=== PATIENT | female | born 1980 | race Caucasian/White ===

== ENCOUNTER 2017-07-30 22:18 | Inpatient (IN) | payer SELFPAY ==
[~2017-07-30] VITALS: Ht 152.4 cm; Wt 110.0 kg
[2017-07-30] MEDS ORDERED: IOHEXOL 350 MG/ML 10 ML VIAL (for RAD DIAG) IVCONTRAST ONE (22:19)
[2017-07-30 22:22] VITALS: BP 172/82; PULSE 101; RESP 18; TEMP 98.7; O2SAT 100
[2017-07-30 22:30] VITALS: TEMP 98.4
[2017-07-30] MEDS ORDERED: NITROGLYCERIN 0.4 MG SL 25 TABS/BTL SL ONE (23:15)
[2017-07-30] MEDS ORDERED: ALPRAZolam 0.5 MG TAB PO ONE (23:15)
[2017-07-30] MEDS ORDERED: cloNIDine HCL 0.1 MG TAB PO ONE (23:15)
--- NOTE | 2017-07-30 23:27 | RADRPT ---
EXAM DATE/TIME: 07/30/2017 23:12 [facility] COMPARISON: No previous studies available for comparison. INDICATIONS : Short of breath, chest pains. MEDICAL HISTORY : None. SURGICAL HISTORY : None. ENCOUNTER: Initial ACUITY: 1 day PAIN SCORE: 6/10 LOCATION: Bilateral chest FINDINGS: Portable AP view of the chest demonstrates a normal-sized cardiac silhouette. No effusion, consolidat ion, or pneumothorax is visualized. The bones and soft tissues demonstrate no acute abnormality. CONCLUSION: No acute cardiopulmonary abnormality is identified. Zana Enciso MD on July 30, 2017 at 23:25 Board Certified Radiologist. This report was verified electronically.
[2017-07-30 23:49] VITALS: BP 141/74; PULSE 89; RESP 18; O2SAT 100
[2017-07-30 23:58] LABS: AUTOMATED NEUTROPHIL # 8.9 TH/MM3 (1.8-7.7); BASOPHIL # 0.1 TH/MM3 (0-0.2); BASOPHIL % 0.7 % (0.0-2.0); EOSINOPHIL # 0.3 TH/MM3 (0-0.4); EOSINOPHIL % 2.7 % (0.0-4.0); HEMATOCRIT 27.3 % (35.0-46.0); HEMOGLOBIN 8.6 GM/DL (11.6-15.3); LYMPH % 22.1 % (9.0-44.0); LYMPHOCYTE # 2.8 TH/MM3 (1.0-4.8); MEAN CELL VOLUME 61.7 FL (80.0-100.0); MEAN CORPUSCULAR HEMOGLOBIN 19.3 PG (27.0-34.0); MEAN CORPUSCULAR HGB CONC 31.3 % (32.0-36.0); MEAN PLATELET VOLUME 6.7 FL (7.0-11.0); MONO % 4.8 % (0.0-8.0); MONOCYTE # 0.6 TH/MM3 (0-0.9); NEUT % 69.7 % (16.0-70.0); PLATELET COUNT 398 TH/MM3 (150-450); RED BLOOD COUNT 4.43 MIL/MM3 (4.00-5.30); RED CELL DISTRIBUTION WIDTH 18.3 % (11.6-17.2); WHITE BLOOD COUNT 12.7 TH/MM3 (4.0-11.0)
[2017-07-31] MEDS ORDERED: NITROGLYCERIN 2% OINT 1 GM PACKET TOPICAL ONE
[2017-07-31 00:06] LABS: CALCIUM 8.4 MG/DL (8.5-10.1); CREATININE 0.7 MG/DL (0.50-1.00)
[2017-07-31 00:10] LABS: TROPONIN I 0.06 NG/ML (0.02-0.05)
[2017-07-31] MEDS ORDERED: LIDOCAINE VISCOUS 2% SOLN 15 ML UDC PO ONE (02:15)
[2017-07-31] MEDS ORDERED: ALUMINUM/MAGNESIUM/SIMETH 30 ML CUP PO ONE (02:15)
[2017-07-31] MEDS ORDERED: SODIUM CHLORIDE 0.9% FLUSH 10 ML FLUSH IV FLUSH PRN ×2 (02:15→05:30)
--- NOTE | 2017-07-31 02:23 | RADRPT ---
EXAM DATE/TIME: 07/31/2017 01:43 [facility] COMPARISON: No previous studies available for comparison. INDICATIONS : Chest and back pain. IV CONTRAST: 70 cc Omnipaque 350 (iohexol) IV RADIATION DOSE: 20.52 CTDIvol (mGy) MEDICAL HISTORY : None SURGICAL HISTORY : Cholecystectomy. section. ENCOUNTER: Initial ACUITY: 1 day PAIN SCALE: 8/10 LOCATION: chest back TECHNIQUE: Volumetric scanning was performed using a multi-row detector CT scanner. The data was post processed with a variety of visualization algorithms including full volume maximum intensity projection, multi -planar sliding thin slab reformation, curved planar reformation, and surface rendering techniques. Using automated exposure control and adjustment of the mA and/or kV according to patient size, radiat ion dose was kept as low as reasonably achievable to obtain optimal diagnostic quality images. DICOM format image data is available electronically for review and comparison. FINDINGS: LUNGS: There is no consolidation or pneumothorax. No concerning pulmonary nodule is visualized. No pleural fluid is present. MEDIASTINUM: No abnormally enlarged lymph nodes by CT criteria. No axillary or hilar abnormalities are identified. Heart demonstrates no abnormality. ABDOMEN: There is been prior cholecystectomy. The liver, adrenal glands, kidneys, spleen, and pancreas demonst rate no significant abnormality. There is no free air or free fluid. PELVIS: There is a cystic lesion in the left pelvis measuring 5.8 cm. It likely arises from the left ovary. B ladder demonstrates no abnormality. THORACIC AORTA: The thoracic aortic root is normal with normal branching of the great vessels. There is no evidence of aneurysm or dissection. ABDOMINAL AORTA: The aorta is normal in caliber without aneurysm or dissection. The renal arteries are patent bilater ally. The proximal celiac and superior mesenteric arteries are patent and normal in diameter. PELVIC VESSELS: The internal iliac and external iliac vessels are patent without aneurysm or stenosis. CONCLUSION: 1. No acute finding is identified within the abdomen or pelvis. There is no aneurysm or dissection. 2. There is a 5.8 cm left adnexal cystic lesion that appears simple. This likely arises from the left ovary given the anatomic location. Given the size suggest [facility] to confirm resolution. Zana Enciso MD on July 31, 2017 at 2:18 Board Certified Radiologist. This report was verified electronically.
[2017-07-31 03:07] VITALS: BP 115/57; PULSE 87; RESP 18; O2SAT 100
[2017-07-31] MEDS ORDERED: HEPARIN SODIUM - IV 10,000 UNITS/10 ML VIAL IV PUSH ONE (04:15)
[2017-07-31] MEDS ORDERED: HEPARIN-D5W 25,000 U/250 ML 250 ML IV PRN ×2 (04:15→04:45)
[2017-07-31] MEDS ORDERED: ASPIRIN 81 MG CHEW TAB CHEW ONE (04:15)
--- NOTE | 2017-07-31 04:26 | PD ---
HPI . Chest pain Chief Complaint: Chest Pain Time Seen by Provider: 23:08 Travel History International Travel<30 days: No Contact w/Intl Traveler<30days: No Traveled to known affect area: No History of Present Illness HPI 37-year-old female complains of relatively sudden onset substernal chest pain radiating to right shoulder and right arm, then her left shoulder and left arm, followed by her upper back that this evening. Pain is described as being dull ache like squeezing type pain, patient clenching her fist in front of her chest to describe the pain. Further history taking is the patient has had pain in her back over the past 2 weeks which is been worse upon lying down. 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 Patient denies any shortness of breath or change in exercise tolerance lately. Denies any significant leg pain leg swelling, no sedentary period or confounding travel of late. PFSH Past Medical History Narrative Medical Past medical history reviewed Anemia: Yes Arthritis: Yes (L HAND) Anxiety: Yes Diminished Hearing: No ?: Not : 2 Ovarian Cysts: Yes Past Surgical History Section: Yes (2) Cholecystectomy: Yes Gynecologic Surgery: Yes () Tonsillectomy: Yes Social History Alcohol Use: Yes (OCCASIONALLY) Tobacco Use: Yes (1/2 PPD) Substance Use: No Allergies-Medications (Allergen,Severity, Reaction): Coded Allergies: diphenhydramine (Unverified Allergy, Unknown, 07/30/17) Reported Meds & Prescriptions Reported Meds & Active Scripts Active Mobic (Meloxicam) 15 Mg Tab 15 Mg PO DAILY PRN Narrative Medication Allergies and medications reviewed Review of Systems Except as stated in HPI: all other systems reviewed are Neg General / Constitutional: No: Fever Eyes: No: Visual changes HENT: No: Headaches Cardiovascular: Positive: Chest Pain or Discomfort Respiratory: No: Shortness of Breath Gastrointestinal: No: Abdominal Pain Genitourinary: No: Dysuria Musculoskeletal: No: Pain Skin: No Rash Neurologic: No: Weakness Psychiatric: No: Depression Endocrine: No: Polydipsia Hematologic/Lymphatic: No: Easy Bruising Physical Exam Narrative GENERAL: Awake alert oriented 3 no acute distress. Vital signs patient had notable hypertension from triage at 220/124, repeated, normalized without treatment. Patient is morbidly obese SKIN: Warm and dry. Color is normal no diaphoresis cyanosis or pallor HEAD: Atraumatic. Normocephalic. EYES: Pupils equal and round. No scleral icterus. No injection or drainage. ENT: No nasal bleeding or discharge. Mucous membranes pink and moist. NECK: Trachea midline. No JVD. Supple full range of motion CARDIOVASCULAR: Regular rate and rhythm. S1-S2 no murmurs rubs or gallops RESPIRATORY: No accessory muscle use. Clear to auscultation. Breath sounds equal bilaterally. GASTROINTESTINAL: Abdomen soft, non-tender, nondistended. Hepatic and splenic margins not palpable. MUSCULOSKELETAL: Extremities without clubbing, cyanosis, or edema. No obvious deformities. NEUROLOGICAL: Awake and alert. No obvious cranial nerve deficits. Motor grossly within normal limits. Five out of 5 muscle strength in the arms and legs. Normal speech. PSYCHIATRIC: Appropriate mood and affect; insight and judgment normal. Data Data Last Documented VS Vital Signs Date Time Temp Pulse Resp B/P (MAP) Pulse Ox O2 Delivery O2 Flow Rate FiO2 07/31/17 03:07 87 18 115/57 (76) 100 07/30/17 22:22 98.7 Orders Orders Electrocardiogram (07/30/17 22:41) Complete Blood Count With Diff (07/30/17 22:41) Basic Metabolic Panel (Bmp) (07/30/17 22:41) Ckmb (Isoenzyme) Profile (07/30/17 22:41) Troponin I (07/30/17 22:41) Chest, Single Ap (07/30/17 22:41) D-Dimer (07/30/17 23:14) Alprazolam (Xanax) (07/30/17 23:15) Nitroglycerin 2% Oint (Nitroglycerin 2% (07/31/17 00:00) Cta Thor Abd Aorta W Iv C W3d (07/31/17 ) Iohexol 350 Inj (Omnipaque 350 Inj) (07/30/17 22:19) Sodium Chloride 0.9% Flush (Ns Flush) (07/31/17 02:15) Al-Mag Hy-Si 40-40-4 Mg/Ml Liq (Mag-Al P (07/31/17 02:15) Lidocaine 2% Viscous (Xylocaine 2% Visco (07/31/17 02:15) Troponin I (07/31/17 03:07) Aspirin Chew (Aspirin Chew) (07/31/17 04:15) Heparin Inj (Heparin Inj) (07/31/17 04:15) Heparin-D5w 25,000 U/250 Ml (Heparin-D5w (07/31/17 04:15) Cbc No Diff, Includes Plts (08/03/17 06:00) Act Partial Throm Time (Ptt) (07/31/17 11:15) Occult Blood (Hemoccult) Stool (07/31/17 04:15) Clopidogrel (Plavix) (07/31/17 04:30) Labs Laboratory Tests Test 07/30/17 23:39 07/30/17 23:42 07/31/17 02:45 White Blood Count 12.7 TH/MM3 Red Blood Count 4.43 MIL/MM3 Hemoglobin 8.6 GM/DL Hematocrit 27.3 % Mean Corpuscular Volume 61.7 FL Mean Corpuscular Hemoglobin 19.3 PG Mean Corpuscular Hemoglobin Concent 31.3 % Red Cell Distribution Width 18.3 % Platelet Count 398 TH/MM3 Mean Platelet Volume 6.7 FL Neutrophils (%) (Auto) 69.7 % Lymphocytes (%) (Auto) 22.1 % Monocytes (%) (Auto) 4.8 % Eosinophils (%) (Auto) 2.7 % Basophils (%) (Auto) 0.7 % Neutrophils # (Auto) 8.9 TH/MM3 Lymphocytes # (Auto) 2.8 TH/MM3 Monocytes # (Auto) 0.6 TH/MM3 Eosinophils # (Auto) 0.3 TH/MM3 Basophils # (Auto) 0.1 TH/MM3 CBC Comment DIFF FINAL Differential Comment Blood Urea Nitrogen 9 MG/DL Creatinine 0.70 MG/DL Random Glucose 105 MG/DL Calcium Level 8.4 MG/DL Sodium Level 140 MEQ/L Potassium Level 3.9 MEQ/L Chloride Level 107 MEQ/L Carbon Dioxide Level 24.0 MEQ/L Anion Gap 9 MEQ/L Estimat Glomerular Filtration Rate 94 ML/MIN Total Creatine Kinase 58 U/L Troponin I 0.06 NG/ML 0.42 NG/ML D-Dimer Quantitative (PE/DVT) 0.37 MG/L FEU MDM Medical Decision Making Medical Screen Exam Complete: Yes Emergency Medical Condition: Yes Medical Record Reviewed: Yes Differential Diagnosis Myocardial infarction, aortic dissection, pulmonary embolus, esophagitis, pericarditis Narrative Course EKG normal sinus rhythm 86 bpm, nonischemic. Slight IVCD noted in inferior limb lead 3 and aVF Chest x-ray normal Laboratory examinations, troponin 0.06, 3 hour repeat 0.42. D-dimer negative laboratory examinations otherwise unremarkable CT aorta performed secondary to patient's pain rating her back and markedly elevated blood pressure at presentation. Negative for acute poor embolus or aortic dissection With conjunction of patient's symptomatology and evolution and cardiac enzymes, patient is treated as non-STEMI, started on heparin ACS protocol, aspirin and Plavix. Case discussed with Dr. Patel Hospital service, admitted Diagnosis Primary Impression: Non-STEMI (non-ST elevated myocardial infarction) Admitting Information Admitting Physician Requests: Admit Musa Kerr MD Jul 31, 2017 04:26
[2017-07-31] MEDS ORDERED: CLOPIDOGREL 75 MG TAB PO ONE (04:30)
[2017-07-31 04:54] VITALS: BP 121/60; PULSE 90; RESP 14; O2SAT 100
[2017-07-31] MEDS ORDERED: D5-1/2 NS + KCL 20 MEQ INJ 1,000 ML IV SCH (05:26)
[2017-07-31] MEDS ORDERED: MORPHINE SULFATE 4 MG/ML INJ IV PUSH PRN (05:30)
[2017-07-31] MEDS ORDERED: ACETAMINOPHEN 500 MG CPLT PO PRN (05:30)
[2017-07-31 05:31] LABS: PROTHROMBIN TIME - PATIENT 10.1 SEC (9.8-11.6)
--- NOTE | 2017-07-31 05:33 | HHI.HP ---
[facility] Michelle Olmos MD Admission Diagnosis Non-STEMI Diagnoses: Travel History International Travel<30 Days: No Contact w/Intl Traveler <30 Da: No Traveled to Known Affected Are: No History of Present Illness 37-year-old female with no significant past medical history presents to the emergency department for the evaluation of chest pain. She describes the chest pain is substernal and a tightness. It is associated with shortness of breath. Denies diaphoresis. She states the pain radiates down her right arm into her upper back. She endorses several episodes of nausea/vomiting. Denies fever/ chills. She denies lower extremity swelling. Review of Systems Except as stated in HPI: all other systems reviewed are Neg Past Family Social History Past Medical History None Past Surgical History 2 Cholecystectomy Tonsillectomy Reported Medications Reported Meds & Active Scripts Active Mobic (Meloxicam) 15 Mg Tab 15 Mg PO DAILY PRN Allergies: Coded Allergies: diphenhydramine (Unverified Allergy, Unknown, 07/30/17) Family History Negative for DM/CAD Social History Smokes approximately half a pack per day. Occasional alcohol. Denies illicit drugs. Physical Exam Vital Signs Vital Signs Date Time Temp Pulse Resp B/P (MAP) Pulse Ox O2 Delivery O2 Flow Rate FiO2 07/31/17 04:54 90 14 121/60 (80) 100 07/31/17 03:07 87 18 115/57 (76) 100 07/30/17 23:49 89 18 141/74 (96) 100 07/30/17 22:40 22 07/30/17 22:22 98.7 101 18 172/82 (112) 100 Physical Exam GENERAL: Obese, female sitting up in bed SKIN: No rashes, ecchymoses or lesions. Cool and dry. HEAD: Atraumatic. Normocephalic. No temporal or scalp tenderness. EYES: Pupils equal round and reactive. Extraocular motions intact. No scleral icterus. No injection or drainage. ENT: Nose without bleeding, purulent drainage or septal hematoma. Throat without erythema, tonsillar hypertrophy or exudate. Uvula midline. Airway patent. NECK: Trachea midline. No JVD or lymphadenopathy. Supple, nontender, no meningeal signs. CARDIOVASCULAR: Regular rate and rhythm without murmurs, gallops, or rubs. RESPIRATORY: Clear to auscultation. Breath sounds equal bilaterally. No wheezes , rales, or rhonchi. GASTROINTESTINAL: Abdomen soft, non-tender, nondistended. No hepato-splenomegaly , or palpable masses. No guarding. MUSCULOSKELETAL: Extremities without clubbing, cyanosis, or edema. No joint tenderness, effusion, or edema noted. No calf tenderness. NEUROLOGICAL: Awake and alert. Cranial nerves II through XII intact. Motor and sensory grossly within normal limits. Normal speech. Laboratory Laboratory Tests Test 07/30/17 23:39 07/30/17 23:42 07/31/17 02:45 White Blood Count 12.7 Red Blood Count 4.43 Hemoglobin 8.6 Hematocrit 27.3 Mean Corpuscular Volume 61.7 Mean Corpuscular Hemoglobin 19.3 Mean Corpuscular Hemoglobin Concent 31.3 Red Cell Distribution Width 18.3 Platelet Count 398 Mean Platelet Volume 6.7 Neutrophils (%) (Auto) 69.7 Lymphocytes (%) (Auto) 22.1 Monocytes (%) (Auto) 4.8 Eosinophils (%) (Auto) 2.7 Basophils (%) (Auto) 0.7 Neutrophils # (Auto) 8.9 Lymphocytes # (Auto) 2.8 Monocytes # (Auto) 0.6 Eosinophils # (Auto) 0.3 Basophils # (Auto) 0.1 CBC Comment DIFF FINAL Differential Comment Blood Urea Nitrogen 9 Creatinine 0.70 Random Glucose 105 Calcium Level 8.4 Sodium Level 140 Potassium Level 3.9 Chloride Level 107 Carbon Dioxide Level 24.0 Anion Gap 9 Estimat Glomerular Filtration Rate 94 Total Creatine Kinase 58 Troponin I 0.06 0.42 D-Dimer Quantitative (PE/DVT) 0.37 Result Diagram: 07/30/17233807/30/172338 Caprini VTE Risk Assessment Caprini VTE Risk Assessment: Mod/High Risk (score >= 2) Caprini Risk Assessment Model Point Value = 1 Point Value = 2 Point Value = 3 Point Value = 5 Age 41-60 Minor surgery BMI > 25 kg/m2 Swollen legs Varicose veins or History of unexplained or recurrent spontaneous Oral contraceptives or hormone replacement Sepsis (< 1 month) Serious lung disease, including pneumonia (< 1 month) Abnormal pulmonary function Acute myocardial infarction Congestive heart failure (< 1 month) History of inflammatory bowel disease Medical patient at bed rest Age 61-74 Arthroscopic surgery Major open surgery (> 45 min) Laparoscopic surgery (> 45 min) Malignancy Confined to bed (> 72 hours) Immobilizing plaster cast Central venous access Age >= 75 History of VTE Family history of VTE Factor V Leiden Prothrombin [id number] Lupus anticoagulant Anticardiolipin antibodies Elevated serum homocysteine Heparin-induced thrombocytopenia Other congenital or acquired thrombophilia Stroke (< 1 month) Elective arthroplasty Hip, pelvis, or leg fracture Acute spinal cord injury (< 1 month) Prophylaxis Regimen Total Risk Factor Score Risk Level Prophylaxis Regimen 0-1 Low Early ambulation 2 Moderate Order ONE of the following: *Sequential Compression Device (SCD) *Heparin 5000 units SQ BID 3-4 Higher Order ONE of the following medications: *Heparin 5000 units SQ TID *Enoxaparin/Lovenox 40 mg SQ daily (WT < 150 kg, CrCl > 30 mL/min) *Enoxaparin/Lovenox 30 mg SQ daily (WT < 150 kg, CrCl > 10-29 mL/min) *Enoxaparin/Lovenox 30 mg SQ BID (WT < 150 kg, CrCl > 30 mL/min) AND/OR *Sequential Compression Device (SCD) 5 or more Highest Order ONE of the following medications: *Heparin 5000 units SQ TID (Preferred with Epidurals) *Enoxaparin/Lovenox 40 mg SQ daily (WT < 150 kg, CrCl > 30 mL/min) *Enoxaparin/Lovenox 30 mg SQ daily (WT < 150 kg, CrCl > 10-29 mL/min) *Enoxaparin/Lovenox 30 mg SQ BID (WT < 150 kg, CrCl > 30 mL/min) AND *Sequential Compression Device (SCD) Assessment and Plan Assessment and Plan Assessment/plan: 1. NSTEMI EKG shows normal sinus rhythm, pulse 86, no ST segment elevations or depressions , personally reviewed Initial troponin 0.06, repeat 0.42 Heparin drip Aspirin, Plavix Morphine for pain Telemetry Serial troponin/EKGs Cardiology consulted, appreciate recommendations 2. Osteoarthritis Pain control as above Holding home Mobic FEN NPO D5 1/2 NS + 20 KCl at 75 cc/hr Electrolytes: monitor and replete prn Heparin ggt Physician Certification 2 Midnight Certification Type: Admission for Inpatient Services Order for Inpatient Services The services are ordered in accordance with Medicare regulations or non- Medicare payer requirements, as applicable. In the case of services not specified as inpatient-only, they are appropriately provided as inpatient services in accordance with the 2-midnight benchmark. Estimated LOS (days): 2 2 days is the estimated time the patient will need to remain in the hospital, assuming treatment plan goals are met and no additional complications. Post-Hospital Plan: Not yet determined Sandra Patel MD Jul 31, 2017 05:33
[2017-07-31 06:48] VITALS: BP 120/56; PULSE 86; RESP 18; O2SAT 100
[2017-07-31 07:34] VITALS: BP 116/59; PULSE 88; RESP 18; TEMP 98.5; O2SAT 97
[2017-07-31 08:00] VITALS: PULSE 88
--- NOTE | 2017-07-31 08:12 | PD.CONS ---
HPI Consult Requested By Primary Care Physician Michelle Olmos MD History of Present Illness 37-year-old female with a past medical history of hip OA who presented for chest pain. The patient states that she was walking out of the bathroom last night and developed sudden onset of chest pain. She describes the pain as a squeezing sensation. 8/10 in severity. Pain is been constant overnight, denies any change. Pain radiates to the upper back and right arm. Associated NEVAREZ and had an episode of vomiting after onset. She denies any relieving factors. She denies any history of HTN, HLD, DM, or heart disease. She denies any family history of heart disease or early AL. In the ED she had a normal d- dimer and CTA of the chest was negative for dissection or aneurysm. (Mirza Gaspar) Review of Systems Negative except as stated in the history of present illness (Mirza Gaspar) Past Family Social History Allergies: Coded Allergies: diphenhydramine (Unverified Allergy, Unknown, 07/30/17) Past Medical History Hip osteoarthritis Morbid obesity Past Surgical History 2 Cholecystectomy Tonsillectomy Reported Medications Reported Meds & Active Scripts Active Mobic (Meloxicam) 15 Mg Tab 15 Mg PO DAILY PRN Active Ordered Medications Current Medications Medications (Trade) Dose Ordered Sig/Shilpi Route Start Time Stop Time Status Last Admin Heparin Sodium/ Dextrose 250 ml @ 10 mls/hr TITRATE PRN IV 07/31/17 04:45 07/31/17 06:13 Potassium Chloride/Dextrose/ Sod Cl 1,000 ml @ 75 mls/hr [id number] IV 07/31/17 05:26 07/31/17 06:31 (NS Flush) 2 ml BID IV FLUSH 07/31/17 09:00 (NS Flush) 2 ml UNSCH PRN IV FLUSH 07/31/17 05:30 (Tylenol) 500 mg Q4H PRN PO 07/31/17 05:30 (Morphine Inj) 4 mg Q3H PRN IV PUSH 07/31/17 05:30 Family History Reports grandmother has diabetes. Denies any family history of heart disease or early AL. Social History Smokes half a pack daily (Mirza Gaspar) Physical Exam Vital Signs Vital Signs Date Time Temp Pulse Resp B/P (MAP) Pulse Ox O2 Delivery O2 Flow Rate FiO2 07/31/17 07:34 98.5 88 18 116/59 (78) 97 07/31/17 06:48 86 18 120/56 (77) 100 Room Air 07/31/17 06:48 07/31/17 04:54 90 14 121/60 (80) 100 07/31/17 03:07 87 18 115/57 (76) 100 07/30/17 23:49 89 18 141/74 (96) 100 07/30/17 22:40 22 07/30/17 22:22 98.7 101 18 172/82 (112) 100 Physical Exam GENERAL: Well-developed well-nourished. Morbidly obese. In no acute distress. NECK: No carotid bruits. No JVD. CARDIOVASCULAR: Regular rate and rhythm. No murmur appreciated. RESPIRATORY: No accessory muscle use. Clear to auscultation. Breath sounds equal bilaterally. MUSCULOSKELETAL: No clubbing or cyanosis. No edema. NEUROLOGICAL: Awake and alert. Normal speech. Laboratory Laboratory Tests Test 07/30/17 23:39 07/30/17 23:42 07/31/17 02:45 White Blood Count 12.7 Red Blood Count 4.43 Hemoglobin 8.6 Hematocrit 27.3 Mean Corpuscular Volume 61.7 Mean Corpuscular Hemoglobin 19.3 Mean Corpuscular Hemoglobin Concent 31.3 Red Cell Distribution Width 18.3 Platelet Count 398 Mean Platelet Volume 6.7 Neutrophils (%) (Auto) 69.7 Lymphocytes (%) (Auto) 22.1 Monocytes (%) (Auto) 4.8 Eosinophils (%) (Auto) 2.7 Basophils (%) (Auto) 0.7 Neutrophils # (Auto) 8.9 Lymphocytes # (Auto) 2.8 Monocytes # (Auto) 0.6 Eosinophils # (Auto) 0.3 Basophils # (Auto) 0.1 CBC Comment DIFF FINAL Differential Comment Blood Urea Nitrogen 9 Creatinine 0.70 Random Glucose 105 Calcium Level 8.4 Sodium Level 140 Potassium Level 3.9 Chloride Level 107 Carbon Dioxide Level 24.0 Anion Gap 9 Estimat Glomerular Filtration Rate 94 Total Creatine Kinase 58 Troponin I 0.06 0.42 Prothrombin Time 10.1 Prothromb Time International Ratio 1.0 Activated Partial Thromboplast Time 27.0 D-Dimer Quantitative (PE/DVT) 0.37 (Mirza Gaspar) Result Diagram: 07/30/17 2339 07/30/17 2339 Imaging Last Impressions Aorta CTA 07/31/17 0000 Signed Impressions: Service Date/Time: Monday, July 31, 2017 01:43 - CONCLUSION: 1. No acute finding is identified within the abdomen or pelvis. There is no aneurysm or dissection. 2. There is a 5.8 cm left adnexal cystic lesion that appears simple. This likely arises from the left ovary given the anatomic location. Given the size suggest follow-up ultrasound imaging in approximately 6-8 weeks to confirm resolution. Zana Enciso MD Chest X-Ray 07/30/17 2241 Signed Impressions: Service Date/Time: Sunday, July 30, 2017 23:12 - CONCLUSION: No acute cardiopulmonary abnormality is identified. Zana Enciso MD (Mirza Gaspar) Assessment and Plan Assessment and Plan 37-year-old female with a past medical history of hip OA who presented for chest pain. The patient states that she was walking out of the bathroom last night and developed sudden onset of chest pain. She describes the pain as a squeezing sensation. 8/10 in severity. Pain is been constant overnight, denies any change. Pain radiates to the upper back and right arm. Associated NEVAREZ and had an episode of vomiting after onset. She denies any relieving factors. She denies any history of HTN, HLD, DM, or heart disease. She denies any family history of heart disease or early AL. In the ED she had a normal d- dimer and CTA of the chest was negative for dissection or aneurysm. Atypical chest pain/elevated troponin: Troponin is elevated to 0.42 and patient placed on heparin drip. EKG w/ NSR. Possible NSTEMI. (Mirza Gaspar) Assessment and Plan NSTEMI - + chest pain. trop 0.06 -> 0.42 discussed options. proceed with [facility] for definitive diagnosis. rule out congenital anomaly vs spontaneous dissection vs printzmetals vs plaque rupture b-HCG stat 2d echo turn heparin gtt off on way to lab NPO (Martin Condon MD) Mirza Gaspar Jul 31, 2017 08:12 Martin Condon MD Jul 31, 2017 08:23
[2017-07-31 09:00] VITALS: PULSE 88
[2017-07-31] MEDS ORDERED: SODIUM CHLORIDE 0.9% FLUSH 10 ML FLUSH IV FLUSH SCH (09:00)
[2017-07-31 09:32] LABS: TROPONIN I 1.7 NG/ML (0.02-0.05)
[2017-07-31] MEDS ORDERED: HEPARIN SODIUM - IV 10,000 UNITS/10 ML VIAL ONE (09:57)
[2017-07-31] MEDS ORDERED: MIDAZOLAM HCL 2 MG/2 ML VIAL ONE ×2 (09:57→10:33)
[2017-07-31] MEDS ORDERED: HEPARIN-NS/PF FLUSH BAG 1,000 ML IV FLUSH ONE (09:57)
--- NOTE | 2017-07-31 10:53 | CATHPROC ---
[employer] HIS Report Study Information Study Number Admission Scheduled Start Study Start [id number] Jul 31 2017 4:29AM 07/31/2017 Jul 31 2017 9:50AM [place] [facility] Cardiac Catheterization Admit Source Facility Department Emergency department [facility] Physician and Clinical Staff Initial Martin Mendoza Landfill Attendant Temo RN, Jose L Recorder Delmy Duggan ,RT(R) Scrub Josey Grant,RT(R) Procedures Performed Procedure Location (Site) Vessel Name Coronary Angiograms LCA Left Coronary Coronary Angiograms RCA Right Coronary L Heart Cath Equipment Time Load Out Supervisor Description Size Mfg Part Number Used/Scraped TRANSDUCER, TRUWAVE [id number] 10:01 SMITH HUERTAS * Used W/STOCKCOCK *[id number] WIRE, CHOICE PT EX. SUPPORT [id number] 10:28 [employer] 180CM Used 182CM *[id number] 534-518T *[id number] 538-420 *[id number] 534-523T *[id number] 10:01 Alminder PACK, CCL CUSTOM * Used *[id number] 10:01 Alminder SUPPORT, ARTERIAL ADULT 10098 *[id number] Used [id number] 10:01 [employer] PEN, SKIN DUAL W/ RULER * Used *[id number] BAND, RADIAL COMPRESSION TR [id number] 10:39 Raiing 24CM Used SHORT 24 *[id number] SHEATH, FR6 RADIAL PRELUDE 10:01 Raiing FR 6 [id number] Used EASE 11CM [id number] 10:28 [employer] MEDICAL WIRE, EXCHANGE 260CM 3MMJ 260CM Used *[id number] 10:01 [employer] MEDICAL WIRE, EXCHANGE 260CM 3MMJ 260CM Used *[id number] 10:01 [employer] OMNIPAQUE, 350 MG, 150ML 150ML [id number] Used [id number] 10:01 [facility] BLANKET,WARM AIR CCL * Used *[id number] Equipment Model, Serial, Lot Number and Expiration Data Description Model Number Serial Number Lot Number Expiration Date WIRE, CHOICE PT EX. SUPPORT [id number] 12-19-2018 182CM History: Allergies Allergy Reaction diphenhydramine History: Risk Factors Family History of Hypertension Dyslipidemia Previous AL Previous Heart Failure Premature CAD No No No No No Prior Valve Prior PCI Prior CABG Surgery No No No Cerebrovascular Peripheral Artery Chronic Lung On Dialysis Diabetes Disease Disease Disease No No No No No History: Symptoms/Diagnosis Selection Items Chest pain SOB History: Stress Tests Stress or Imaging Studies Performed No History: Other Current Smoker Method Packs a Day Years Used Pack Years Yes Cigarettes 1 21 21 Labs Hgb (g/dl) Hct (%) RBC (MIL/MM3) WBC (l/cumm) Platelets (thousands) 11.60-17.00 35.00-51.00 4.00-5.90 4.00-11.00 150.00-450.00 8.6 27.3 4.4 12.7 398 Glucose (mg/dl) BUN (mg/dl) Creatinine (mg/dl) BUN:Creatinine (1:x) 74.00-106.00 7.00-18.00 0.50-1.30 10.00-20.00 105 9 0.7 12.9 Na (meq/l) K (meq/l) Cl (meq/l) CO2 (mmol/L) Ca (mg/dl) 136.00-145.00 3.50-5.10 98.00-107.00 21.00-32.00 8.50-10.10 140 3.9 107 24 8.4 PT (sec) PTT (sec) INR (PTT:PT) 9.80-11.60 24.30-30.10 0.90-1.10 10.1 27 1 Troponin I (ng/ml) CPK (u/l) 0.02-0.05 26.00-308.00 1.7 124 Medication Medication Total Dose (Bolus/Oral) Medication Total Dosage/Unit 1% XYLOCAINE 20 mL FENTANYL 150 mcg HEPARIN 5000 units RADIAL COCKTAIL 4 mL (Bolus) VERSED 3 mg Medications (Bolus/Oral) Medication Time Given Dosage/Unit Administered By Reason FENTANYL 07/31/2017 10:20:00 AM 50 mcg Jose L Plascencia RN 50 mcg FENTANYL given in lab by Jose L Plascencia RN in Right Forearm via Peripheral IV. Ordered by Martin Condon. VERSED 07/31/2017 10:21:19 AM 1 mg Jose L Plascencia RN 1 mg VERSED given in lab by Jose L Plascencia RN in Right Forearm via Peripheral IV. Ordered by Tavares Condon 1% XYLOCAINE 07/31/2017 10:24:01 AM 20 mL Martin Condon 20 mL 1% XYLOCAINE given in lab by Martin Condon in Right Radial via Subcutaneous. Ordered by Martin Condon. HEPARIN 07/31/2017 10:25:30 AM 5000 units Jose L Plascencia RN 5000 units HEPARIN given in lab by Jose L Plascencia RN in Right Forearm via Peripheral IV. Ordered by Martin Urena. RADIAL COCKTAIL 07/31/2017 10:26:24 AM 2 mL (Bolus) Martin Condon 2 mL (Bolus) RADIAL COCKTAIL given in lab by Martin Condon in Right Radial via Radial. Using [Soluti on Name]. Ordered by Martin Condon. 200 MCG NTG FENTANYL 07/31/2017 10:29:41 AM 25 mcg Jose L Plascencia RN 25 mcg FENTANYL given in lab by Jose L Plascencia RN in Right Forearm via Peripheral IV. Ordered by Martin Condon. VERSED 07/31/2017 10:30:45 AM 1 mg Jose L Plascencia RN 1 mg VERSED given in lab by Jose L Plascencia RN in Right Forearm via Peripheral IV. Ordered by Tavares Condon phen. RADIAL COCKTAIL 07/31/2017 10:32:21 AM 2 mL (Bolus) Martin Condon 2 mL (Bolus) RADIAL COCKTAIL given in lab by Martin Condon in Right Radial via Radial. Using [Soluti on Name]. Ordered by Martin Condon. 200 MCG NTG FENTANYL 07/31/2017 10:34:00 AM 25 mcg Temo SANDY, Jose L 25 mcg FENTANYL given in lab by Temo SANDY, Jose L in Right Forearm via Peripheral IV. Ordered by Martin Condon. VERSED 07/31/2017 10:35:00 AM 1 mg Temo SANDY, Jose L 1 mg VERSED given in lab by Jose L Plascencia RN in Right Forearm via Peripheral IV. Ordered by Tavares Condon. FENTANYL 07/31/2017 10:45:13 AM 50 mcg Jose L Plascencia RN 50 mcg FENTANYL given in lab by Jose L Plascencia RN in Right Forearm via Peripheral IV. Ordered by Martin Condon. Medication (Drip) Medication Time Given Dosage/Unit Concentration/Unit Diluent (ml) Solution IV Solutions 07/31/2017 9:50:44 AM 0 mL (IV) 500 NaCl .9 IV Solutions given in lab by Jose L Plascencia RN in Right Forearm via Peripheral IV. Pump/Drip Flow = 20 ml/hr using NaCl .9. Ordered by Martin Condon. Initial Case Assessment Cardiovascular HR Rhythm NIBP Chest Pain 93 sr 135/84 0 Edema Present Skin color Skin None Normal Warm Dry Circulatory - Right Pulses Dorsalis Pedis Femoral Radial 1 2 2 Scale (0,1,2,3,4,d) Scale (0,1,2,3,4,d) Neurological State Oriented to time-place- Alert Moves all extremities person Respiration - General Respiration Rate SpO2 (%) (B/min) 20 99 Final Case Assessment Cardiovascular HR Rhythm NIBP Chest Pain 94 sr 144/82 0 Edema Present Skin color Skin None Normal Warm Dry Circulatory - Right Pulses Dorsalis Pedis Femoral Radial 1 2 2 Scale (0,1,2,3,4,d) Scale (0,1,2,3,4,d) Neurological State Oriented to time-place- Alert Moves all extremities person Respiration - General Respiration Rate SpO2 (%) (B/min) 20 99 Chronological Log Time Study Chronological Log 9:50:29 Patient arrived via Bed. 9:50:30 Patient Name, D.O.B, / Armband Verified By R.N. 9:50:31 Consent signed by the physician and the patient and verified by the [facility] staff. 9:50:32 Pre-op and post- op instructions given; patient acknowledges understanding of instructions. 9:50:32 Verbal Stimulation=2 Physical Stimulation=2 Airway=2 Respiration=2 TOTAL=8. (0=absent, 1=marquis ited, 2=present) 9:50:34 Presedation assessment performed by [facility] RN. 9:50:35 Allens test performed on the left radial and ulnar artery. 9:50:39 Patient has been NPO for More than 6Hrs. 9:50:40 Skin Breakdown- none per patient 9:50:41 Patient Warmer Placed on the Table. 9:50:41 Gabriela Prominences Protected 9:50:43 A # 20 IV was noted in the Forearm (right). Grade = patent IV Solutions given in lab by Jose L Plascencia RN in Right Forearm via Peripheral IV. Pump/Drip Flow = 20 ml/hr using NaCl 9:50:44 .9. Ordered by Martin Condon. 9:50:45 History and physical on the chart or being dictated. Assessment: Initial Case, HR=93 BPM, Rhythm=sr, LWZY=665/84 mmhg, Chest Pain=0, Edema=None, Col or=Normal, Skin = Warm, Dry 9:50:46 Right Pulses: Nick Ped=1, Femoral=2, Radial=2 Neurological: State=Alert, Ox3, JONES Respiration: Resp=20 B/min, SpO2=99 % 9:54:36 A # 20 IV was noted in the Antecubital (left). Grade = patent Vitals capture started with the following parameters, Patient=Adult, Interval=5 min, Initial Pr otvwud=334 mmHg, 9:55:59 Deflation Rate=5 mmHg, Cuff placed on Left Arm 9:57:09 WGYE=670/81 mmhg, LpH0=591.0 % 10:01:37 HR=90 bpm, NYIC=962/84 mmhg, SpO2=99.0 %, Resp=25 B/min 10:03:14 Right groin and right radial prepped with 2% chlorhexidine, and draped after a 3 min. waiti ng time. 10:06:20 Reference ECG taken 10:06:36 HR=89 bpm, QSYF=987/73 mmhg, SrB8=715.0 %, Resp=15 B/min, Pain=0, Morena=6, Owens=2 10:09:02 paged 10:11:35 HR=88 bpm, NDYF=906/74 mmhg, VcI7=712.0 %, Resp=13 B/min, Pain=0, Morena=6, Owens=2 10:11:37 MD responded 10:12:40 Pressure channel 1 zeroed. 10:16:34 HR=83 bpm, ZMIY=930/76 mmhg, McP5=235.0 %, Resp=16 B/min, Pain=0, Morena=6, Owens=2 10:20:00 50 mcg FENTANYL given in lab by Jose L Plascencia RN in Right Forearm via Peripheral IV. Ordered by Martin Condon. 10:20:02 MD arrived. 10:21:19 1 mg VERSED given in lab by Jose L Plascencia RN in Right Forearm via Peripheral IV. Ordered by Martin Condon. 10:21:35 HR=86 bpm, OFBL=326/78 mmhg, JlN6=175.0 %, Resp=14 B/min, Pain=0, Morena=6, Owens=2 Time Out. Correct patient, correct procedure, correct physician, power injector not loaded with contrast with surgical 10:22:00 team present. Time Out Concurred by MD and individual staff in procedure. 10:23:20 Case Start 10:24:01 20 mL 1% XYLOCAINE given in lab by Martin Condon in Right Radial via Subcutaneous. Ordered by Martin Condon. 10:24:40 Access site was Right Radial Artery. 10:25:30 5000 units HEPARIN given in lab by Jose L Plascencia RN in Right Forearm via Peripheral IV. Orde red by Martin Condon. A SHEATH, FR6 RADIAL PRELUDE EASE 11CM FR 6 was advanced into the Radial (right) using the Perc utaneous 10::49 technique. 2 mL (Bolus) RADIAL COCKTAIL given in lab by Martin Condon in Right Radial via Radial. Using [ Solution Name]. 10::24 Ordered by Martin Condon. 200 MCG NTG 10::34 HR=90 bpm, UOQP=451/78 mmhg, SpO2=96.0 %, Resp=18 B/min, Pain=0, Morena=6, Owens=2 A JR 5.0 INFINITI CATHETER FR 5 was advanced over a wire. OMNIPAQUE, 350 MG, 150ML 150ML was us ed for 10:26:48 injections. Recorded Pressure: LV, HR=86, Condition=Condition 1 10:29:39 (Left Ventricle) LV 113/6/11 10:29:41 25 mcg FENTANYL given in lab by Jose L Plascencia RN in Right Forearm via Peripheral IV. Ordered by Martin Condon. Recorded Pressure: LV, Ao, HR=86, Condition=Condition 1 10:29:45 (Left Ventricle) LV 116/6/15, (Aorta) Ao 107/67/85 10:30:45 1 mg VERSED given in lab by Jose L Plascencia RN in Right Forearm via Peripheral IV. Ordered by Martin Condon. 10:30:53 The RCA was injected and visualized at various angles. OMNIPAQUE, 350 MG, 150ML 150ML used . 10:31:16 Catheter was removed A JL 3.5 INFINITI CATHETER FR 5 was advanced over a wire. OMNIPAQUE, 350 MG, 150ML 150ML was us ed for ::26 injections. 10:31:31 HR=88 bpm, ZRQB=149/86 mmhg, SpO2=98.0 %, Resp=14 B/min, Pain=0, Morena=6, Owens=2 2 mL (Bolus) RADIAL COCKTAIL given in lab by Martin Condon in Right Radial via Radial. Using [ Solution Name]. 10:32:21 Ordered by Martin Condon. 200 MCG NTG 10:33:28 Catheter was removed 10:34:00 25 mcg FENTANYL given in lab by Jose L Plascencia RN in Right Forearm via Peripheral IV. Ordered by Martin Condon. A JL 4.0 INFINITI CATHETER FR 4 was advanced over a wire. OMNIPAQUE, 350 MG, 150ML 150ML was us ed for 10:34:14 injections. 10:35:00 1 mg VERSED given in lab by Jose L Plascencia RN in Right Forearm via Peripheral IV. Ordered by Martin Condon. 10:36:34 HR=88 bpm, WGZT=608/82 mmhg, SpO2=96.0 %, Resp=18 B/min, Pain=0, Morena=6, Owens=2 Recorded Pressure: Ao, HR=93, Condition=Condition 1 10:37:42 (Aorta) Ao 112/74/90 10:37:46 The LCA was injected and visualized at various angles. OMNIPAQUE, 350 MG, 150ML 150ML used . 10:38:59 Catheter was removed 10:39:06 Case End Assessment: Final Case, HR=94 BPM, Rhythm=sr, IPOT=158/82 mmhg, Chest Pain=0, Edema=None, Color =Normal, Skin = Warm, Dry 10:39:28 Right Pulses: Nick Ped=1, Femoral=2, Radial=2 Neurological: State=Alert, Ox3, JONES Respiration: Resp=20 B/min, SpO2=99 % 10:39:53 Catheter(s) removed without difficulty Radial Compression Device Used. 11 mLs of air placed in BAND, RADIAL COMPRESSION TR SHORT 24 24 CM. Affected 10:40:05 hand 97 % O2 saturation. 10:40:20 Sterile dressing applied to site 10:40:21 No case complications noted. 10:40:22 Cine recording checked. 10:40:23 Bedside Report will be given. 10:40:35 Contrast Scanned 10:40:40 A Left Heart Cath was performed. 10:41:38 HR=93 bpm, GMLI=294/84 mmhg, SpO2=97.0 %, Resp=21 B/min, Pain=0, Morena=6, Owens=2 10:45:13 50 mcg FENTANYL given in lab by Jose L Plascencia RN in Right Forearm via Peripheral IV. Ordered by Martin Condon. 10:46:33 HR=91 bpm, ATMH=361/90 mmhg, SpO2=98.0 %, Resp=20 B/min, Pain=0, Morena=6, Owens=2 10:49:46 Vitals capture stopped. 10:52:11 Patient moved to [facility] End Study - Contrast Media Used In Study Contrast Total Opened (mL) Total Used (mL) Total Wasted (mL) Omnipaque 25 25 0 End Study - Maximum Contrast Load Max Contrast Load (mL) 785.7 End Study - Radiation Exposure Fluoro Time (minutes) 3.8 End Study - Patient Disposition Complications Transferred To Interventional Outcome No Telemetry Bed No attempt made
[2017-07-31] MEDS ORDERED: ASPIRIN EC 81 MG TABEC PO SCH (11:00)
[2017-07-31] MEDS ORDERED: amLODIPine BESYLATE 5 MG TAB PO SCH (11:00)
--- NOTE | 2017-07-31 11:15 | MA ---
cc: AJITH TIRADO DATE 07/31/2017 INDICATION [id number] [place]. PROCEDURE PERFORMED 1. Fluoroscopy with interpretation 2. Coronary angiography 3. Left heart catheterization METHOD The risks, benefits and alternatives discussed with the patient, the patient understood and consented to the procedure. PROCEDURE The patient was brought into the catheterization lab, placed on the catheterization table. The right wrist was prepped and draped in a sterile fashion. The right wrist was anesthetized with 2% lidocaine. The right radial artery is cannulated and a 6-Syriac 7 cm sheath was placed without difficulty. LEFT HEART CATHETERIZATION Intraventricular hemodynamics measured at 116/6 mmHg. The left end-diastolic pressure was 15 mmHg. CORONARY ANGIOGRAPHY The left main coronary is angiographically normal. The left anterior descending coronary artery is tortuous, but angiographically normal. The diagonal branch is angiographically normal. The left circumflex gives rise to a larger obtuse marginal branch and is angiographically normal. The right coronary artery is a dominant vessel giving rise to the posterior descending branch and is angiographically normal. CONCLUSIONS 1. Angiographically normal coronary arteries. 2. Normal left-sided filling pressures. PLAN The patient will be monitored closely for any post procedural complications. Troponin elevation is likely secondary to coronary vasospasm with Prinzmetal angina as her symptoms were suggested. There is no evidence for spontaneous coronary dissection, anomalous coronary artery, or fixed obstructive coronary disease. We will start on baby aspirin. We will hold off on beta marco given that we are going to initiate a non-dihydropyridine calcium channel marco for coronary vasospasm. Since there is no traditional atherosclerosis, statin therapy is not indicated. We will follow up with a 2-D echocardiogram. I will watch her today just to make sure she does not have any arrhythmias with a small troponin elevation and anticipate discharge tomorrow. MD LAURIE Reyes/LOPEZ /10:50 AM /11:06 AM
--- NOTE | 2017-07-31 11:23 | HHI.DCPOC ---
Discharge Care Plan Goals to Promote Your Health * To prevent worsening of your condition and complications * To maintain your health at the optimal level Directions to Meet Your Goals Take your medications as prescribed Follow your dietary instruction Follow activity as directed Keep your appointments as scheduled Take your immunizations and boosters as scheduled If your symptoms worsen call your PCP, if no PCP go to Urgent Care Center or Emergency Room Smoking is Dangerous to Your Health. Avoid second hand smoke Call the 24-hour hour crisis hotline for domestic abuse at Melissa Hester MD Jul 31, 2017 11:23
[2017-07-31] MEDS ORDERED: IOHEXOL 350 MG/ML 50 ML BTL (for Cath Lab) OTHER ONE (13:02)
--- NOTE | 2017-07-31 15:48 | EKG ---
Date Performed: 07/31/2017 Time Performed: 09:37:27 PTAGE: 37 years EKG: Sinus rhythm NORMAL ECG Since the prior tracing, there has been no significant change PREVIOUS TRACING : 07/31/2017 02.50 DOCTOR: Daily Resendiz Interpretating Date/Time 07/31/2017 15:48:30
--- NOTE | 2017-07-31 15:48 | EKG ---
Date Performed: 07/31/2017 Time Performed: 02:50:20 PTAGE: 37 years EKG: Sinus rhythm INFERIOR MYOCARDIAL INFARCTION ABNORMAL ECG Since the prior tracing, there has been no significant c zeinab PREVIOUS TRACING : 07/30/2017 23.09 DOCTOR: Daily Resendiz Interpretating Date/Time 07/31/2017 15:48:21
--- NOTE | 2017-07-31 16:11 | EKG ---
Date Performed: 07/30/2017 Time Performed: 23:09:28 PTAGE: 37 years EKG: Sinus rhythm NORMAL ECG Since the prior tracing, there has been no significant change PREVIOUS TRACING : 10/22/2015 09.26 DOCTOR: Daily Resendiz Interpretating Date/Time 07/31/2017 16:11:05
--- NOTE | 2017-07-31 17:31 | ECHRPT ---
Indication: CONCLUSIONS The left ventricular systolic function is hyperdynamic with an estimated ejection fraction in the ra nge of 65- 70%. Normal left ventricular size. Wall thickness is normal. BP: 116 / 59 HR: 88 Rhythm: Sinus MEASUREMENTS (Male / Female) Normal Values Technical Quality:Fair 2D ECHO LV Diastolic Diameter PLAX 4.7 cm 4.2 - 5.9 / 3.9 - 5.3 cm LV Systolic Diameter PLAX 3.2 cm IVS Diastolic Thickness 1.0 cm 0.6 - 1.0 / 0.6 - 0.9 cm LVPW Diastolic Thickness 1.0 cm 0.6 - 1.0 / 0.6 - 0.9 cm LV Relative Wall Thickness 0.4 LVOT Diameter 1.9 cm LA Systolic Diameter LX 3.9 cm 3.0 - 4.0 / 2.7 - 3.8 cm LV Ejection Fraction MOD 4C 65.3 % LV Cardiac Index MOD 4C 1936.4 cm/minm LV Ejection Fraction 4C AL 66.1 % LV Cardiac Index 4C AL 2009.6 cm/minm M-MODE Aortic Root Diameter MM 2.4 cm AV Cusp Separation MM 1.8 cm DOPPLER AV Peak Velocity 166.0 cm/s AV Peak Gradient 11.0 mmHg LVOT Peak Velocity 120.0 cm/s LVOT Peak Gradient 5.8 mmHg AV Area Cont Eq pk 2.0 cm MV Area PHT 3.9 cm Mitral E Point Velocity 114.0 cm/s Mitral A Point Velocity 80.9 cm/s Mitral E to A Ratio 1.4 PV Peak Velocity 122.0 cm/s PV Peak Gradient 6.0 mmHg FINDINGS LEFT VENTRICLE The left ventricular systolic function is hyperdynamic with an estimated ejection fraction in the ra nge of 65- 70%. Normal left ventricular size. Wall thickness is normal. RIGHT VENTRICLE Normal right ventricular size and systolic function. LEFT ATRIUM The left atrial size is normal. RIGHT ATRIUM The right atrial size is normal. ATRIAL SEPTUM Normal atrial septal thickness without atrial level shunting by limited color doppler interrogation. AORTA The aortic root and proximal ascending aorta are normal in size on limited imaging. MITRAL VALVE Structurally normal mitral valve. No mitral valve stenosis or regurgitation. AORTIC VALVE Trileaflet aortic valve. No aortic valve stenosis or regurgitation. TRICUSPID VALVE Structurally normal tricuspid valve. No tricuspid valve stenosis or regurgitation. PULMONARY VALVE The pulmonary valve is not well visualized. VESSELS The inferior vena cava is normal in size. PERICARDIUM No pericardial effusion. Martin Condon MD, FACC (Electronically Signed) Final Date:31 July 2017 17:29
--- NOTE | 2017-08-05 13:26 | PQ ---
Physician Query Response Document PATIENT: NICA GUZMAN : 1980 ADMIT DATE: 07/31/2017 4:29 AM DISCH DATE: RESPONDING PROVIDER #: [email or web address] QUERY TEXT: Clarification of Clinical Diagnostic Findings Please clarify documentation or clinical relevance for the clinical / diagnostic findings or whether those are insignificant or unable to be further specified. PLEASE INDICATE IF THE DOCUMENTED DX OF NSTEMI WAS: -- Ruled in -- Ruled out -- Undetermined -- Other The patient's Clinical Indicators include: 07/31/17 Admission Diagnosis Non-STEMI PER INITIAL H EKG shows normal sinus rhythm, pulse 86, no ST segment elevations or depressions, personally reviewed Initial troponin 0.06, repeat 0.42 Heparin drip PER 07/31/17 CARDIAC CATH REPORT - CONCLUSIONS 1. Angiographically normal coronary arteries. 2. Normal left-sided filling pressures. CADDYMASTER STATES - Troponin elevation is likely secondary to coronary vasospasm with Prinzmetal angina as her symptoms were suggested. There is no evidence for spontaneous coronary dissection, anomalous coronary artery, or fixed obstructive coronary disease. Query created by: Jania Noel on 08/02/2017 1:04 PM RESPONSE TEXT: Patient with Prinzmetal angina, s/p cardiac cath shows angiographically normal coronary arteries, als o normal pressure filling of left ventricle Electronically signed by: Melissa Hester MD 08/05/2017 1:22 PM
== END 2017-07-31 18:00 | disposition home or self-care (01) | DRG 287 ==
LOC: NEPC 22:18 → NEDA 07-31 04:29 → MERGE 07-31 04:29 → NEPFCDU 07-31 06:39 → HCIS 07-31 09:55
PROVIDERS: ADMIT Hospitalist; ATTEND Hospitalist
PROC: 4A023N7 Measurement of Cardiac Sampling and Pressure, Left Heart, Percutaneous Approach (ICD-10-PCS; principal; 2017-07-31)
PROC: B2111ZZ Fluoroscopy of Multiple Coronary Arteries using Low Osmolar Contrast (ICD-10-PCS; 2017-07-31)
DX: I20.1 Angina pectoris with documented spasm (principal); Z68.42 Body mass index [BMI] 45.0-49.9, adult; F17.210 Nicotine dependence, cigarettes, uncomplicated; E66.01 Morbid (severe) obesity due to excess calories; D64.9 Anemia, unspecified; M54.9 Dorsalgia, unspecified; R03.0 Elevated blood-pressure reading, without diagnosis of hypertension; M16.10 Unilateral primary osteoarthritis, unspecified hip
CPT/HCPCS: 71045; 71275; 74174; 80048; 82550; 84484; 84702; 85025; 85379; 85610; 85730; 93005; 93306; 93458; 99152; 99153; 99285; C1769; C1893; J1644; J2250; J3010; J3480; Q9967

== ENCOUNTER 2017-11-09 17:06 | Observation (INO) | payer SELFPAY ==
[~2017-11-09] VITALS: Ht 152.4 cm; Wt 100.0 kg
[~2017-11-09 17:06] MED LIST: AMLO5 PO; ECASA81 PO; MOBI15TA PO
[2017-11-09 17:14] VITALS: BP 130/59; PULSE 94; RESP 18; TEMP 98.5; O2SAT 94
[2017-11-09] MEDS ORDERED: METO25TA3 PO (20:50)
[2017-11-09] MEDS ORDERED: ATOR20TA15 PO (20:50)
[2017-11-09] MEDS ORDERED: FERR325T18 PO (20:50)
[2017-11-09] MEDS ORDERED: DICL75TA PO (20:50)
[2017-11-09] MEDS ORDERED: VANCOMYCIN INJ 1,000 MG in SODIUM CHLOR 0.9% 250 ML INJ 250 ML IV ONE (21:30)
--- NOTE | 2017-11-09 21:33 | PD ---
HPI Chief Complaint: Edema Time Seen by Provider: 20:41 Travel History International Travel<30 days: No Contact w/Intl Traveler<30days: No Traveled to known affect area: No History of Present Illness HPI Patient is a 37-year-old female who is got 2 days of redness and warmth tenderness of her right lower ankle it started in her foot instep as well as the lower anterior tib-fib area it is painful it is red it is warm she denies any injury she denies any trauma she has a tattoo there but that has been there for years she is not a diabetic only past medical history is that she has had a RI a year ago angioplasty with no stents she has not taken any medication for this it is pressure-like pain it is warm it is burning it is localized to the distal tib-fib and foot right-sided PFSH Past Medical History Anemia: Yes Arthritis: Yes (RA BILATERAL HANDS, 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) Anxiety: Yes Depression: No Cancer: No Cardiovascular Problems: Yes Cerebrovascular Accident: No Coronary Artery Disease: Yes (AMI 08/12) Diminished Hearing: No Endocrine: No Genitourinary: No Headaches: Yes Immune Disorder: No Musculoskeletal: Yes Neurologic: Yes Psychiatric: Yes Reproductive: Yes (ENDOMETRIOSIS) Respiratory: Yes Migraines: Yes Seizures: No Tetanus Vaccination: Unknown ?: Not LMP: 1 MONTH AGO : 2 Ovarian Cysts: Yes Tubal Ligation: Yes Past Surgical History Abdominal Surgery: Yes (CSECTIONS, GALLBLADDER) Cardiac Surgery: No Section: Yes (2) Cholecystectomy: Yes Ear Surgery: No Endocrine Surgery: No Eye Surgery: No Genitourinary Surgery: No Gynecologic Surgery: Yes () Oral Surgery: No (EXTRACTION) Thoracic Surgery: No Tonsillectomy: Yes Other Surgery: Yes (CSECTION, GALLBLADDER, TONSILS) Social History Alcohol Use: Yes (OCCASIONALLY) Tobacco Use: Yes (1/2 PPD) Substance Use: No Allergies-Medications (Allergen,Severity, Reaction): Coded Allergies: diphenhydramine (Unverified Allergy, Unknown, 08/09/17) Reported Meds & Prescriptions Reported Meds & Active Scripts Active Aspirin DR (Aspirin) 81 Mg Tabdr 81 Mg PO DAILY Mobic (Meloxicam) 15 Mg Tab 15 Mg PO DAILY PRN Reported Ferrous Sulfate 325 Mg (65 Mg Iron) Tablet 325 Mg PO TIDPC Metoprolol Tartrate 25 Mg Tab 12.5 Mg PO BID Atorvastatin (Atorvastatin Calcium) 20 Mg Tab 20 Mg PO HS Diclofenac Sodium DR (Diclofenac Sodium) 75 Mg Tabdr 75 Mg PO BID Review of Systems Except as stated in HPI: all other systems reviewed are Neg General / Constitutional: Positive: Fever Skin: Positive Rash, Positive Change in Pigmentation Physical Exam Narrative GENERAL: SKIN: Warm and dry. HEAD: Atraumatic. Normocephalic. EYES: Pupils equal and round. No scleral icterus. No injection or drainage. ENT: No nasal bleeding or discharge. Mucous membranes pink and moist. NECK: Trachea midline. No JVD. CARDIOVASCULAR: Regular rate and rhythm. RESPIRATORY: No accessory muscle use. Clear to auscultation. Breath sounds equal bilaterally. GASTROINTESTINAL: Abdomen soft, non-tender, nondistended. Hepatic and splenic margins not palpable. MUSCULOSKELETAL: Extremities right lower tibial area petechial and red erythema tender and warmth , appears cellulitis over possible vasculitis NEUROLOGICAL: Awake and alert. No obvious cranial nerve deficits. Motor grossly within normal limits. Five out of 5 muscle strength in the arms and legs. Normal speech. PSYCHIATRIC: Appropriate mood and affect; insight and judgment normal. Data Data Last Documented VS Orders Orders Vancomycin Inj (Vancomycin Inj) (11/09/17 21:30) Complete Blood Count With Diff (11/09/17 21:30) Comprehensive Metabolic Panel (11/09/17 21:30) Blood Culture (11/09/17 21:30) Ketorolac Inj (Toradol Inj) (11/09/17 22:30) Ketorolac Inj (Toradol Inj) (11/09/17 22:30) Morphine Inj (Morphine Inj) (11/09/17 22:30) Morphine Inj (Morphine Inj) (11/09/17 23:45) Westergren Sedimentation Rate (11/10/17 00:49) C-Reactive Protein (Crp) (11/10/17 00:49) Admit Order (Ed Use Only) (11/10/17 04:58) Labs Laboratory Tests Test 11/09/17 21:55 White Blood Count 9.2 TH/MM3 Red Blood Count 5.22 MIL/MM3 Hemoglobin 11.8 GM/DL Hematocrit 37.6 % Mean Corpuscular Volume 72.0 FL Mean Corpuscular Hemoglobin 22.7 PG Mean Corpuscular Hemoglobin Concent 31.5 % Red Cell Distribution Width 32.0 % Platelet Count 279 TH/MM3 Mean Platelet Volume 7.4 FL Neutrophils (%) (Auto) 76.7 % Lymphocytes (%) (Auto) 15.8 % Monocytes (%) (Auto) 6.2 % Eosinophils (%) (Auto) 0.9 % Basophils (%) (Auto) 0.4 % Neutrophils # (Auto) 7.1 TH/MM3 Lymphocytes # (Auto) 1.5 TH/MM3 Monocytes # (Auto) 0.6 TH/MM3 Eosinophils # (Auto) 0.1 TH/MM3 Basophils # (Auto) 0.0 TH/MM3 CBC Comment AUTO DIFF Differential Total Cells Counted 100 Neutrophils % (Manual) 69 % Band Neutrophils % 13 % Lymphocytes % 10 % Monocytes % 4 % Eosinophils % 3 % Basophils % 1 % Neutrophils # (Manual) 7.5 TH/MM3 Differential Comment FINAL DIFF MANUAL Dohle Bodies PRESENT Platelet Estimate NORMAL Platelet Morphology Comment NORMAL Ovalocytes 1+ Erythrocyte Sedimentation Rate 69 mm/hr Blood Urea Nitrogen 15 MG/DL Creatinine 1.05 MG/DL Random Glucose 103 MG/DL Total Protein 8.6 GM/DL Albumin 3.9 GM/DL Calcium Level 9.3 MG/DL Alkaline Phosphatase 99 U/L Aspartate Amino Transf (AST/SGOT) 20 U/L Alanine Aminotransferase (ALT/SGPT) 27 U/L Total Bilirubin 0.6 MG/DL Sodium Level 135 MEQ/L Potassium Level 3.2 MEQ/L Chloride Level 102 MEQ/L Carbon Dioxide Level 22.5 MEQ/L Anion Gap 11 MEQ/L Estimat Glomerular Filtration Rate 59 ML/MIN C-Reactive Protein 21.40 MG/DL [facility] Medical Decision Making Medical Screen Exam Complete: Yes Emergency Medical Condition: Yes Differential Diagnosis cellulitis vs vasculitis with suprainfection vs other trauma venous insufficiency other Narrative Course cellulitis treated with Vanco 1 gr in ER Redness has appearance which could also be vasculitis, ESR elevated and wbc 12 and CRP elevated as well I will let inpt decide if steroid indicated Diagnosis Primary Impression: Cellulitis Scripts Hydrocodone/Acetaminophen (Hydrocodone-Acetamin 10-325 mg) 10 Mg-325 Mg Tablet 1 TAB PO Q6H Y for PAIN SCALE 6 TO 10, #12 TAB Prov: Henrique Monroy MD 11/13/17 Kp Bianchi MD November 09, 2017 21:33
[2017-11-09 22:16] LABS: AUTOMATED NEUTROPHIL # 7.1 TH/MM3 (1.8-7.7); BASOPHIL % 0.4 % (0.0-2.0); EOSINOPHIL # 0.1 TH/MM3 (0-0.4); EOSINOPHIL % 0.9 % (0.0-4.0); HEMATOCRIT 37.6 % (35.0-46.0); HEMOGLOBIN 11.8 GM/DL (11.6-15.3); LYMPH % 15.8 % (9.0-44.0); LYMPHOCYTE # 1.5 TH/MM3 (1.0-4.8); MEAN CORPUSCULAR HEMOGLOBIN 22.7 PG (27.0-34.0); MEAN CORPUSCULAR HGB CONC 31.5 % (32.0-36.0); MEAN PLATELET VOLUME 7.4 FL (7.0-11.0); MONO % 6.2 % (0.0-8.0); MONOCYTE # 0.6 TH/MM3 (0-0.9); NEUT % 76.7 % (16.0-70.0); PLATELET COUNT 279 TH/MM3 (150-450); RED BLOOD COUNT 5.22 MIL/MM3 (4.00-5.30); WHITE BLOOD COUNT 9.2 TH/MM3 (4.0-11.0)
[2017-11-09] MEDS ORDERED: MORPHINE SULFATE 2 MG/ML SYRINGE IV PUSH ONE (22:30)
[2017-11-09] MEDS ORDERED: KETOROLAC TROMETHAMINE 30 MG/ML (IVP) VIAL IV PUSH ONE ×2 (22:30)
[2017-11-09 22:34] LABS: ALBUMIN 3.9 GM/DL (3.4-5.0); AST (GOT) 20 U/L (15-37); BICARBONATE 22.5 MEQ/L (21.0-32.0); BLOOD UREA NITROGEN 15 MG/DL (7-18); CALCIUM 9.3 MG/DL (8.5-10.1); CHLORIDE 102 MEQ/L (98-107); CREATININE 1.05 MG/DL (0.50-1.00); GLOMERULAR FILTRATION RATE 59 ML/MIN (>89); GLUCOSE,RANDOM 103 MG/DL (74-106); SODIUM (NA) 135 MEQ/L (136-145)
[2017-11-09 22:35] LABS: ALT (GPT) 27 U/L (10-53)
[2017-11-09 22:37] LABS: ALKALINE PHOSPHATASE 99 U/L (45-117); TOTAL BILIRUBIN ADULT 0.6 MG/DL (0.2-1.0); TOTAL PROTEIN 8.6 GM/DL (6.4-8.2)
[2017-11-09 23:30] LABS: BANDS 13 % (0-6); BASOPHILS 1 % (0-2); DOHLE BODIES PRESENT (NONE SEEN); LYMPHOCYTES 10 % (9-44); MONOCYTES 4 % (0-8); NEUTROPHIL # MANUAL DIFF 7.5 TH/MM3 (1.8-7.7); POLYS (SEG NEUTROPHILS) 69 % (16-70)
[2017-11-09 23:32] LABS: OVALOCYTES 1+ (NORMAL)
[2017-11-09] MEDS ORDERED: MORPHINE SULFATE 4 MG/ML INJ IV PUSH ONE (23:45)
[2017-11-10] VITALS (9 sets, daily range): BP systolic 93–142; BP diastolic 50–71; PULSE 61–98; RESP 14–24; TEMP 98.4–99.2; O2SAT 96–99
[2017-11-10] MEDS ORDERED: ACETAMINOPHEN 325 MG TAB PO PRN (05:15)
[2017-11-10] MEDS ORDERED: ACETAMINOPHEN/HYDROcodone 325 MG/5 MG TAB PO PRN (05:15)
[2017-11-10] MEDS ORDERED: SODIUM CHLORIDE 0.9% FLUSH 10 ML FLUSH IV FLUSH PRN (05:15)
[2017-11-10] MEDS ORDERED: Vancomycin Consult Pharmacy 1 EA OTHER SCH (05:15)
[2017-11-10] MEDS ORDERED: SENNOSIDES 8.6 MG TAB PO PRN (05:15)
[2017-11-10] MEDS ORDERED: BISACODYL 10 MG SUPP RECTAL PRN (05:15)
[2017-11-10] MEDS ORDERED: METOCLOPRAMIDE HCL 10 MG/2 ML VIAL IV PUSH PRN (05:15)
[2017-11-10] MEDS ORDERED: MAGNESIUM HYDROXIDE SUSP 30 ML CUP PO PRN (05:15)
[2017-11-10] MEDS ORDERED: LACTULOSE SYRUP 20 GM/30 ML CUP PO PRN (05:15)
[2017-11-10] MEDS: CEFEPIME INJ 1,000 MG in SODIUM CHLORIDE 0.9% INJ 100 ML IV SCH ×2 (06:43→17:42)
[2017-11-10] MEDS: ACETAMINOPHEN/HYDROcodone 325 MG/10 MG TAB PO PRN ×4 (07:24→21:31)
[2017-11-10] MEDS: SODIUM CHLOR 0.9% 1000 ML INJ 1,000 ML IV SCH ×2 (07:25→15:25)
[2017-11-10] MEDS: SODIUM CHLORIDE 0.9% FLUSH 10 ML FLUSH IV FLUSH SCH ×2 (09:25→21:36)
[2017-11-10] MEDS: DOCUSATE SODIUM 50 MG/SENNA 8.6 MG TAB PO SCH ×2 (09:25→21:30)
[2017-11-10] MEDS: VANCOMYCIN INJ 1,500 MG in SODIUM CHLORID 0.9% 500 ML INJ 500 ML IV SCH (11:16)
--- NOTE | 2017-11-10 13:07 | HHI.HP ---
[facility] Service [facility] Primary Care Physician Michelle Olmos MD Admission Diagnosis vasculitis Cellulitis Diagnoses: Travel History International Travel<30 Days: No Contact w/Intl Traveler <30 Da: No Traveled to Known Affected Are: No History of Present Illness Mrs. Palacio is a 37 year old female. She has a history of right lower extremity redness and swelling. This has been progressive over the last 2 days. Increased swelling, redness, and pain have been a problem. She decided to come in the emergency department due to the progression. No fevers reported. She has no previous history of this. No other areas of the body are affected. Review of Systems Constitutional: DENIES: Fatigue, Fever, Chills Eyes: DENIES: Diplopia, Eye inflammation, Eye pain Ears, nose, mouth, throat: DENIES: Hearing loss, Vertigo, Nasal discharge Respiratory: DENIES: Apneas, Cough, Snoring, Wheezing, Shortness of breath Cardiovascular: DENIES: Chest pain, Palpitations, Syncope Gastrointestinal: DENIES: Abdominal pain, Black stools, Bloody stools Musculoskeletal: DENIES: Joint pain, Muscle aches, Stiffness, Joint Swelling Integumentary: DENIES: Abnormal pigmentation, Pruritus, Rash, Nail changes Hematologic/lymphatic: DENIES: Bruising, Lymphadenopathy Immunologic/allergic: DENIES: Eczema, Urticaria Neurologic: DENIES: Abnormal gait, Headache, Paresthesias Psychiatric: DENIES: Anxiety, Confusion, Hallucinations Past Family Social History Past Medical History Chronic Anemia Osteoarthritis General Anxiety Disorder CAD Old MD Hx of Headaches Endometriosis Ovarian Cysts Past Surgical History Cholecystectomy Tooth Extraction Tonsillectomy Reported Medications Reported Meds & Active Scripts Active Aspirin DR (Aspirin) 81 Mg Tabdr 81 Mg PO DAILY Mobic (Meloxicam) 15 Mg Tab 15 Mg PO DAILY PRN Reported Ferrous Sulfate 325 Mg (65 Mg Iron) Tablet 325 Mg PO TIDPC Metoprolol Tartrate 25 Mg Tab 12.5 Mg PO BID Atorvastatin (Atorvastatin Calcium) 20 Mg Tab 20 Mg PO HS Diclofenac Sodium DR (Diclofenac Sodium) 75 Mg Tabdr 75 Mg PO BID Allergies: Coded Allergies: diphenhydramine (Unverified Allergy, Unknown, 08/09/17) Active Ordered Medications Administered Medications Medications (Trade) Dose Ordered Sig/Shilpi Route PRN Reason Start Time Stop Time Status Last Admin Dose Admin Cefepime HCl 1000 mg/Sodium Chloride 100 ml @ 200 mls/hr Q12H IV 11/10/17 06:00 11/10/17 06:43 Sodium Chloride 1,000 ml @ 100 mls/hr Q10H IV 11/10/17 05:09 11/10/17 07:25 Sodium Chloride (NS Flush) 2 ml BID IV FLUSH 11/10/17 09:00 11/10/17 09:25 Acetaminophen/ Hydrocodone Bitart ([place] 10-325 Mg) 1 tab Q4H PRN PO PAIN SCALE 6 TO 10 11/10/17 05:15 11/10/17 11:25 Senna/Docusate Sodium (Funmi-Colace) 1 tab BID PO 11/10/17 09:00 11/10/17 09:25 Vancomycin HCl 1500 mg/Sodium Chloride 515 ml @ 250 mls/hr Q18H IV 11/10/17 11:00 11/10/17 11:16 Family History Maternal Grandmother: DM2, Cancer NOS Social History Alcohol Use: Yes (OCCASIONALLY) Tobacco Use: Yes (1/2 PPD) Substance Use: No Physical Exam Vital Signs Vital Signs Date Time Temp Pulse Resp B/P (MAP) Pulse Ox O2 Delivery O2 Flow Rate FiO2 11/10/17 11:54 98.8 86 20 116/58 (77) 99 11/10/17 08:32 99.1 85 24 123/58 (79) 97 11/10/17 08:21 (64) 11/10/17 07:59 98 18 93/50 (64) 97 Room Air 11/10/17 06:06 98.9 84 16 131/65 (87) 99 Room Air 11/10/17 04:00 71 14 136/69 (91) 98 Room Air 11/10/17 00:34 16 11/10/17 00:34 16 11/10/17 00:00 68 14 142/71 (94) 99 Room Air 11/09/17 17:14 98.5 94 18 130/59 (82) 94 Physical Exam GENERAL: NAD, A&Ox3 HEAD: Normocephalic. NECK: Supple, trachea midline. No lymphadenopathy. EYES: No scleral icterus. No injection or drainage. CARDIOVASCULAR: Regular rate and rhythm without murmurs, gallops, or rubs. RESPIRATORY: Breath sounds equal bilaterally. No accessory muscle use. GASTROINTESTINAL: Abdomen soft, non-tender, nondistended. MUSCULOSKELETAL: No cyanosis, or edema. SKIN: Warm and dry. Middle one half of the right lower extremity has schumacher- red erythema with swelling and induration below the affected area. Patchy area of erythema is present at the right medial foot. NEURO: No focal neurological deficitis. Laboratory Laboratory Tests Test 11/09/17 21:55 White Blood Count 9.2 Red Blood Count 5.22 Hemoglobin 11.8 Hematocrit 37.6 Mean Corpuscular Volume 72.0 Mean Corpuscular Hemoglobin 22.7 Mean Corpuscular Hemoglobin Concent 31.5 Red Cell Distribution Width 32.0 Platelet Count 279 Mean Platelet Volume 7.4 Neutrophils (%) (Auto) 76.7 Lymphocytes (%) (Auto) 15.8 Monocytes (%) (Auto) 6.2 Eosinophils (%) (Auto) 0.9 Basophils (%) (Auto) 0.4 Neutrophils # (Auto) 7.1 Lymphocytes # (Auto) 1.5 Monocytes # (Auto) 0.6 Eosinophils # (Auto) 0.1 Basophils # (Auto) 0.0 CBC Comment AUTO DIFF Differential Total Cells Counted 100 Neutrophils % (Manual) 69 Band Neutrophils % 13 Lymphocytes % 10 Monocytes % 4 Eosinophils % 3 Basophils % 1 Neutrophils # (Manual) 7.5 Differential Comment FINAL DIFF MANUAL Dohle Bodies PRESENT Platelet Estimate NORMAL Platelet Morphology Comment NORMAL Ovalocytes 1+ Erythrocyte Sedimentation Rate 69 Blood Urea Nitrogen 15 Creatinine 1.05 Random Glucose 103 Total Protein 8.6 Albumin 3.9 Calcium Level 9.3 Alkaline Phosphatase 99 Aspartate Amino Transf (AST/SGOT) 20 Alanine Aminotransferase (ALT/SGPT) 27 Total Bilirubin 0.6 Sodium Level 135 Potassium Level 3.2 Chloride Level 102 Carbon Dioxide Level 22.5 Anion Gap 11 Estimat Glomerular Filtration Rate 59 C-Reactive Protein 21.40 Date/Time Source Procedure Growth Status 11/09/17 21:55 Blood Peripheral Aerobic Blood Culture - Preliminary NO GROWTH IN 1 DAY Resulted 11/09/17 21:55 Blood Peripheral Anaerobic Blood Culture - Preliminary NO GROWTH IN 1 DAY Resulted Result Diagram: 11/09/17215411/09/172154 Caprini VTE Risk Assessment Caprini VTE Risk Assessment: Mod/High Risk (score >= 2) Caprini Risk Assessment Model Point Value = 1 Point Value = 2 Point Value = 3 Point Value = 5 Age 41-60 Minor surgery BMI > 25 kg/m2 Swollen legs Varicose veins or History of unexplained or recurrent spontaneous Oral contraceptives or hormone replacement Sepsis (< 1 month) Serious lung disease, including pneumonia (< 1 month) Abnormal pulmonary function Acute myocardial infarction Congestive heart failure (< 1 month) History of inflammatory bowel disease Medical patient at bed rest Age 61-74 Arthroscopic surgery Major open surgery (> 45 min) Laparoscopic surgery (> 45 min) Malignancy Confined to bed (> 72 hours) Immobilizing plaster cast Central venous access Age >= 75 History of VTE Family history of VTE Factor V Leiden Prothrombin [id number] Lupus anticoagulant Anticardiolipin antibodies Elevated serum homocysteine Heparin-induced thrombocytopenia Other congenital or acquired thrombophilia Stroke (< 1 month) Elective arthroplasty Hip, pelvis, or leg fracture Acute spinal cord injury (< 1 month) Prophylaxis Regimen Total Risk Factor Score Risk Level Prophylaxis Regimen 0-1 Low Early ambulation 2 Moderate Order ONE of the following: *Sequential Compression Device (SCD) *Heparin 5000 units SQ BID 3-4 Higher Order ONE of the following medications: *Heparin 5000 units SQ TID *Enoxaparin/Lovenox 40 mg SQ daily (WT < 150 kg, CrCl > 30 mL/min) *Enoxaparin/Lovenox 30 mg SQ daily (WT < 150 kg, CrCl > 10-29 mL/min) *Enoxaparin/Lovenox 30 mg SQ BID (WT < 150 kg, CrCl > 30 mL/min) AND/OR *Sequential Compression Device (SCD) 5 or more Highest Order ONE of the following medications: *Heparin 5000 units SQ TID (Preferred with Epidurals) *Enoxaparin/Lovenox 40 mg SQ daily (WT < 150 kg, CrCl > 30 mL/min) *Enoxaparin/Lovenox 30 mg SQ daily (WT < 150 kg, CrCl > 10-29 mL/min) *Enoxaparin/Lovenox 30 mg SQ BID (WT < 150 kg, CrCl > 30 mL/min) AND *Sequential Compression Device (SCD) Assessment and Plan Problem List: (1) Cellulitis ICD Code: L03.90 - Cellulitis, unspecified (2) Vasculitis ICD Code: I77.6 - Arteritis, unspecified Assessment and Plan 37 year old female admitted with Vasculitis and Cellulitis of RLE. Right Lower Extremity Cellulitis Right Lower Extremity Vasculitis Cover with Vancomycin and Cefepime ESR and CRP are significantly elevated Alternate etiology could be autoimmune Steroids provided for inflammation WALTER ordered RF for autoimmune screen Chronic Anemia Follow CBC CAD Old MD Asymptomatic Follow clinically DVT Prophylaxis Lovenox Physician Certification 2 Midnight Certification Type: Admission for Inpatient Services Order for Inpatient Services The services are ordered in accordance with Medicare regulations or non- Medicare payer requirements, as applicable. In the case of services not specified as inpatient-only, they are appropriately provided as inpatient services in accordance with the 2-midnight benchmark. Estimated LOS (days): 2 days is the estimated time the patient will need to remain in the hospital, assuming treatment plan goals are met and no additional complications. Post-Hospital Plan: Tai Sanz MD November 10, 2017 13:07
[2017-11-10] MEDS ORDERED: methylPREDNISolone SOD SUCC 40 MG/1 ML VIAL IV PUSH ONE (14:00)
[2017-11-10] MEDS: ENOXAPARIN SODIUM 40 MG/0.4 ML SYRINGE SQ SCH (14:34)
[2017-11-10] MEDS: methylPREDNISolone SOD SUCC 40 MG/1 ML VIAL IV PUSH SCH (21:35)
[2017-11-11] MEDS: SODIUM CHLOR 0.9% 1000 ML INJ 1,000 ML IV SCH ×2 (01:20→11:11)
[2017-11-11 03:03] VITALS: BP 138/64; PULSE 65; RESP 18; TEMP 98; O2SAT 96
[2017-11-11] MEDS: VANCOMYCIN INJ 1,500 MG in SODIUM CHLORID 0.9% 500 ML INJ 500 ML IV SCH ×2 (04:20→17:55)
[2017-11-11] MEDS: CEFEPIME INJ 1,000 MG in SODIUM CHLORIDE 0.9% INJ 100 ML IV SCH ×2 (06:27→17:10)
[2017-11-11 08:10] VITALS: BP 119/73; PULSE 90; TEMP 98.2; O2SAT 96
[2017-11-11] MEDS: methylPREDNISolone SOD SUCC 40 MG/1 ML VIAL IV PUSH SCH ×2 (08:45→22:40)
[2017-11-11] MEDS: SODIUM CHLORIDE 0.9% FLUSH 10 ML FLUSH IV FLUSH SCH ×2 (08:45→22:40)
[2017-11-11] MEDS: ACETAMINOPHEN/HYDROcodone 325 MG/10 MG TAB PO PRN ×4 (08:46→22:41)
[2017-11-11] MEDS: DOCUSATE SODIUM 50 MG/SENNA 8.6 MG TAB PO SCH ×2 (08:46→22:39)
[2017-11-11 09:00] LABS: AUTOMATED NEUTROPHIL # 10.9 TH/MM3 (1.8-7.7); BASOPHIL % 0.1 % (0.0-2.0); HEMATOCRIT 32.7 % (35.0-46.0); HEMOGLOBIN 10.1 GM/DL (11.6-15.3); LYMPH % 6.8 % (9.0-44.0); LYMPHOCYTE # 0.8 TH/MM3 (1.0-4.8); MEAN CELL VOLUME 73.6 FL (80.0-100.0); MEAN CORPUSCULAR HEMOGLOBIN 22.8 PG (27.0-34.0); MEAN PLATELET VOLUME 7.5 FL (7.0-11.0); MONO % 3.4 % (0.0-8.0); MONOCYTE # 0.4 TH/MM3 (0-0.9); NEUT % 89.7 % (16.0-70.0); PLATELET COUNT 234 TH/MM3 (150-450); RED BLOOD COUNT 4.45 MIL/MM3 (4.00-5.30); RED CELL DISTRIBUTION WIDTH 31.6 % (11.6-17.2); WHITE BLOOD COUNT 12.1 TH/MM3 (4.0-11.0)
[2017-11-11 10:01] LABS: ALBUMIN 2.9 GM/DL (3.4-5.0); ALKALINE PHOSPHATASE 85 U/L (45-117); ALT (GPT) 24 U/L (10-53); AST (GOT) 13 U/L (15-37); BICARBONATE 22.6 MEQ/L (21.0-32.0); BLOOD UREA NITROGEN 8 MG/DL (7-18); CALCIUM 8.7 MG/DL (8.5-10.1); CHLORIDE 109 MEQ/L (98-107); CREATININE 0.61 MG/DL (0.50-1.00); GLOMERULAR FILTRATION RATE 110 ML/MIN (>89); GLUCOSE,RANDOM 127 MG/DL (74-106); SODIUM (NA) 139 MEQ/L (136-145); TOTAL BILIRUBIN ADULT 0.3 MG/DL (0.2-1.0); TOTAL PROTEIN 7.1 GM/DL (6.4-8.2)
--- NOTE | 2017-11-11 10:23 | HHI.PR ---
Subjective Remarks No significant clinical change from yesterday. No fevers overnight. Leukocytosis is present but could be related to steroids. Objective Vital Signs Date Time Temp Pulse Resp B/P (MAP) Pulse Ox O2 Delivery O2 Flow Rate FiO2 11/11/17 08:10 98.2 90 119/73 (88) 96 11/11/17 08:10 11/11/17 03:03 98.0 65 18 138/64 (88) 96 11/10/17 23:41 98.4 61 18 126/60 (82) 96 11/10/17 23:20 16 11/10/17 19:04 99.2 80 18 126/58 (80) 97 11/10/17 15:57 99.0 83 20 117/68 (84) 98 11/10/17 11:54 98.8 86 20 116/58 (77) 99 I/O 11/10/17 11/10/17 11/10/17 11/11/17 11/11/17 11/11/17 07:00 15:00 23:00 07:00 15:00 23:00 Intake Total 250 ml 100 ml Balance 250 ml 100 ml Intake IV Total 250 ml 100 ml # Voids 4 Result Diagram: 11/11/17 0800 11/11/17 0800 Objective Remarks GENERAL: NAD, A&Ox3 HEAD: Normocephalic. NECK: Supple, trachea midline. No lymphadenopathy. EYES: No scleral icterus. No injection or drainage. CARDIOVASCULAR: Regular rate and rhythm without murmurs, gallops, or rubs. RESPIRATORY: Breath sounds equal bilaterally. No accessory muscle use. GASTROINTESTINAL: Abdomen soft, non-tender, nondistended. MUSCULOSKELETAL: No cyanosis, or edema. SKIN: Warm and dry. Right lower extremity has bright erythema with mild induration at middle half of lower extremity. She has some patchy areas of punctate erythema at the inferior right medial foot. NEURO: No focal neurological deficitis. A/P Problem List: (1) Vasculitis ICD Code: I77.6 - Arteritis, unspecified (2) Cellulitis ICD Code: L03.90 - Cellulitis, unspecified Assessment and Plan 37 year old female admitted with Vasculitis and Cellulitis of RLE. Right Lower Extremity Cellulitis Right Lower Extremity Vasculitis Covering with Vancomycin and Cefepime ESR and CRP are significantly elevated Alternate etiology could be autoimmune Steroids provided for inflammation (potential autoimmune) component WALTER pending RF pending TSH, T3, T4 ordered Chronic Anemia Follow CBC CAD Old AR Asymptomatic Follow clinically DVT Prophylaxis Tai Hyatt MD November 11, 2017 10:22
[2017-11-11 10:39] LABS: RHEUMATOID FACTOR SCREEN NEGATIVE (NEGATIVE)
[2017-11-11 11:14] LABS: BANDS 15 % (0-6); LYMPHOCYTES 9 % (9-44); MONOCYTES 5 % (0-8); NEUTROPHIL # MANUAL DIFF 10.4 TH/MM3 (1.8-7.7); POLYS (SEG NEUTROPHILS) 71 % (16-70)
[2017-11-11 11:15] LABS: OVALOCYTES 1+ (NORMAL)
[2017-11-11 12:25] VITALS: BP 130/60; PULSE 65; RESP 18; TEMP 99.2; O2SAT 96
[2017-11-11] MEDS: ENOXAPARIN SODIUM 40 MG/0.4 ML SYRINGE SQ SCH (13:19)
[2017-11-11 18:00] VITALS: BP 120/62; PULSE 70; RESP 20; TEMP 98.2; O2SAT 98
[2017-11-11 20:03] VITALS: BP 136/61; PULSE 70; RESP 18; TEMP 98.5; O2SAT 97
[2017-11-11] MEDS ORDERED: PHARMACY ORDERED LAB ONE (22:45)
[2017-11-12 03:27] VITALS: BP 127/72; PULSE 67; RESP 18; TEMP 98.4; O2SAT 98
[2017-11-12] MEDS: SODIUM CHLOR 0.9% 1000 ML INJ 1,000 ML IV SCH ×4 (05:21→18:41)
[2017-11-12] MEDS: CEFEPIME INJ 1,000 MG in SODIUM CHLORIDE 0.9% INJ 100 ML IV SCH (05:23)
[2017-11-12] MEDS: ACETAMINOPHEN/HYDROcodone 325 MG/10 MG TAB PO PRN ×5 (05:23→22:35)
[2017-11-12] MEDS: VANCOMYCIN INJ 1,500 MG in SODIUM CHLORID 0.9% 500 ML INJ 500 ML IV SCH (06:11)
[2017-11-12 07:20] VITALS: BP 140/71; PULSE 67; RESP 17; TEMP 98.4; O2SAT 99
[2017-11-12] MEDS: DOCUSATE SODIUM 50 MG/SENNA 8.6 MG TAB PO SCH ×2 (08:48→21:04)
[2017-11-12] MEDS: SODIUM CHLORIDE 0.9% FLUSH 10 ML FLUSH IV FLUSH SCH ×2 (08:48→21:05)
[2017-11-12] MEDS: methylPREDNISolone SOD SUCC 40 MG/1 ML VIAL IV PUSH SCH ×2 (08:48→21:04)
[2017-11-12 09:19] LABS: AUTOMATED NEUTROPHIL # 9.9 TH/MM3 (1.8-7.7); BASOPHIL % 0.3 % (0.0-2.0); EOSINOPHIL % 0.1 % (0.0-4.0); HEMATOCRIT 30.1 % (35.0-46.0); HEMOGLOBIN 9.3 GM/DL (11.6-15.3); LYMPH % 14.5 % (9.0-44.0); LYMPHOCYTE # 1.8 TH/MM3 (1.0-4.8); MEAN CELL VOLUME 73.3 FL (80.0-100.0); MEAN CORPUSCULAR HEMOGLOBIN 22.6 PG (27.0-34.0); MEAN CORPUSCULAR HGB CONC 30.9 % (32.0-36.0); MEAN PLATELET VOLUME 7.4 FL (7.0-11.0); MONO % 5.2 % (0.0-8.0); MONOCYTE # 0.6 TH/MM3 (0-0.9); NEUT % 79.9 % (16.0-70.0); PLATELET COUNT 262 TH/MM3 (150-450); RED BLOOD COUNT 4.11 MIL/MM3 (4.00-5.30); WHITE BLOOD COUNT 12.4 TH/MM3 (4.0-11.0)
--- NOTE | 2017-11-12 09:38 | HHI.PR ---
Subjective Remarks Follow up for cellulitis/vasculitis. The patient reports only minimal improvement or RLE erythema/edema. She remains afebrile. Pain well controlled. Denies any other medical complaints at this time. Objective Vitals Vital Signs Date Time Temp Pulse Resp B/P (MAP) Pulse Ox O2 Delivery O2 Flow Rate FiO2 11/12/17 07:20 98.4 67 17 140/71 (94) 99 11/12/17 06:23 15 11/12/17 03:27 98.4 67 18 127/72 (90) 98 11/11/17 20:03 98.5 70 18 136/61 (86) 97 11/11/17 18:00 98.2 70 20 120/62 (81) 98 11/11/17 12:25 99.2 65 18 130/60 (83) 96 Result Diagram: 11/12/17 0839 11/11/17 0800 Objective Remarks GENERAL: Well-nourished, well-developed female patient in [facility]. SKIN: Warm and dry. HEENT: Normocephalic. Atraumatic. Pupils equal and round. Mucous membranes pink and moist. CARDIOVASCULAR: Regular rate and rhythm. No murmur appreciated. RESPIRATORY: No accessory muscle use. Clear to auscultation. Breath sounds equal bilaterally. GASTROINTESTINAL: Abdomen soft, non-tender, nondistended. Normoactive bowel sounds x4. MUSCULOSKELETAL: No obvious deformities. RLE with 1+edema and diffuse erythema from distal calf to ankle with some patchy punctate areas of erythema at medial foot; warm to touch. NEUROLOGICAL: Awake and alert. No obvious cranial nerve deficits. Motor grossly within normal limits. Moving all extremities spontaneously. Normal speech. PSYCHIATRIC: Appropriate mood and affect; insight and judgment normal. Medications and IVs Current Medications Medications (Trade) Dose Ordered Sig/Shilpi Route Start Time Stop Time Status Last Admin Pharmacy Profile Note 0 ml @ 0 mls/hr UNSCH OTHER 11/10/17 05:15 Cefepime HCl 1000 mg/Sodium Chloride 100 ml @ 200 mls/hr Q12H IV 11/10/17 06:00 11/12/17 05:23 Sodium Chloride 1,000 ml @ 100 mls/hr Q10H IV 11/10/17 05:09 11/12/17 07:09 (NS Flush) 2 ml UNSCH PRN IV FLUSH 11/10/17 05:15 (NS Flush) 2 ml BID IV FLUSH 11/10/17 09:00 11/12/17 08:48 (Reglan Inj) 5 mg Q6H PRN IV PUSH 11/10/17 05:15 (Tylenol) 650 mg Q6H PRN PO 11/10/17 05:15 ([place] 5-325 Mg) 1 tab Q4H PRN PO 11/10/17 05:15 ([place] 10-325 Mg) 1 tab Q4H PRN PO 11/10/17 05:15 11/12/17 10:05 (Funmi-Colace) 1 tab BID PO 11/10/17 09:00 11/12/17 08:48 (Milk Of Magnesia Liq) 30 ml Q12H PRN PO 11/10/17 05:15 (Senokot) 17.2 mg Q12H PRN PO 11/10/17 05:15 (Dulcolax Supp) 10 mg DAILY PRN RECTAL 11/10/17 05:15 (Lactulose Liq) 30 ml DAILY PRN PO 11/10/17 05:15 (SoluMEDROL INJ) 20 mg Q12HR IV PUSH 11/10/17 21:00 11/12/17 08:48 (Lovenox Inj) 40 mg Q24H SQ 11/10/17 14:00 11/11/17 13:19 Vancomycin HCl 1500 mg/Sodium Chloride 515 ml @ 250 mls/hr Q12H IV 11/11/17 17:00 11/12/17 06:11 ([facility] Ordered Lab Info) SPECIFIC LAB TO BE ... ONCE ONCE .XX 11/12/17 16:45 11/12/17 16:46 A/P Problem List: (1) Cellulitis ICD Code: L03.90 - Cellulitis, unspecified (2) Vasculitis ICD Code: I77.6 - Arteritis, unspecified Assessment and Plan 37 year old female with history of chronic anemia, arthritis, anxiety, CAD, endometriosis, presents with RLE redness and swelling x2days. RLE Cellulitis/Vasculitis: Afebrile, no leukocytosis but with +band neutrophils. ESR elevated at 69 and CRP elevated at 21. -Continue antibiotics with IV Vancomycin and Cefepime -With elevated inflammatory markers, possible etiology could be autoimmune, RF negative, WALTER pending, TSH/T4 wnl. -Continue steroids IV Solumedrol 20mg bid for inflammation (potential autoimmune) component -Continue IVF, pain control prn -Minimal improvement on IV abx, will consult Infectious Disease Chronic Anemia: Hgb 11.8 --> 10.1 --> 9.3 -No signs of active bleeding -Follow CBC trend CAD, Old MA: chronic, asymptomatic -Follow clinically DVT Prophylaxis: Lovenox Discharge Planning Discharge pending further clinical improvement, ID evaluation and clearance for discharge. Anna Marie Raymond PA-C November 12, 2017 9:38 am
[2017-11-12 09:42] LABS: ALBUMIN 2.8 GM/DL (3.4-5.0); AST (GOT) 11 U/L (15-37); BICARBONATE 23.9 MEQ/L (21.0-32.0); BLOOD UREA NITROGEN 11 MG/DL (7-18); CALCIUM 8.6 MG/DL (8.5-10.1); CHLORIDE 108 MEQ/L (98-107); CREATININE 0.64 MG/DL (0.50-1.00); GLOMERULAR FILTRATION RATE 104 ML/MIN (>89); GLUCOSE,RANDOM 106 MG/DL (74-106); SODIUM (NA) 141 MEQ/L (136-145)
[2017-11-12 09:54] LABS: ALKALINE PHOSPHATASE 71 U/L (45-117); ALT (GPT) 24 U/L (10-53); FREE T3 1.34 PG/ML (2.18-3.98); THYROXINE (T4) 6.7 MCG/DL (4.8-13.9); TOTAL BILIRUBIN ADULT 0.2 MG/DL (0.2-1.0); TOTAL PROTEIN 6.5 GM/DL (6.4-8.2)
[2017-11-12 10:01] LABS: OVALOCYTES 1+ (NORMAL)
[2017-11-12 11:15] VITALS: BP 148/74; PULSE 65; RESP 18; TEMP 98.7; O2SAT 98
--- NOTE | 2017-11-12 12:45 | PD.CONS ---
History of Present Illness Service Infectious disease Consult Requested By Cinthia Leiva Reason for Consult Evaluate patient with right lower extremity cellulitis, not improving Primary Care Physician Michelle Olmos MD Diagnoses: History of Present Illness Patient seen and examined. Records reviewed. Patient is a 37-year-old female, presented to the hospital for evaluation of redness on her right leg and foot. His problem started about 5 days prior to admission when she had an acute onset of fevers. He did not think much of it, however about 2 days prior to admission she started noticing redness on her right leg and right foot. It started getting worse, and she presented to the hospital November 10 for further evaluation and treatment. Since admission she has not had any fever. She was started on vancomycin and cefepime. Her WBC is mildly elevated at 12,000. It was felt that she was not improving, so infectious disease consultation has been requested to evaluate the patient. Patient stated that the redness on her right foot as well as on the anterior right leg is probably a little bit better than when she came in. She is complaining of a lot of pain. She denies any respiratory complaint as far as any sore throat or any cough or congestion. Denies any nausea or vomiting, diarrhea, abdominal pain or any urinary complaints. Review of Systems Constitutional: COMPLAINS OF: Fever, Chills, DENIES: Night Sweats Eyes: DENIES: Eye pain Ears, nose, mouth, throat: DENIES: Nasal discharge, Oral lesions, Throat pain, Hoarseness, Sinus Pain Respiratory: DENIES: Cough, Shortness of breath Cardiovascular: COMPLAINS OF: Lower Extremity Edema, DENIES: Chest pain, Palpitations, Syncope, Dyspnea on Exertion Gastrointestinal: DENIES: Abdominal pain, Constipation, Diarrhea, Nausea, Vomiting, Difficulty Swallowing Genitourinary: DENIES: Urinary frequency, Urgency, Dysuria Musculoskeletal: COMPLAINS OF: Joint pain, Joint Swelling Integumentary: COMPLAINS OF: Rash, DENIES: Pruritus Neurologic: DENIES: Headache, Localized weakness Psychiatric: DENIES: Hallucinations Past Family Social History Allergies: Coded Allergies: diphenhydramine (Unverified Allergy, Unknown, 08/09/17) Past Medical History Chronic Anemia Osteoarthritis General Anxiety Disorder CAD Old [place] Hx of Headaches Endometriosis Ovarian Cysts Past Surgical History Cholecystectomy Tooth Extraction Tonsillectomy Active Ordered Medications Current Medications Medications (Trade) Dose Ordered Sig/Shilpi Route Start Time Stop Time Status Last Admin Pharmacy Profile Note 0 ml @ 0 mls/hr UNSCH OTHER 11/10/17 05:15 Cefepime HCl 1000 mg/Sodium Chloride 100 ml @ 200 mls/hr Q12H IV 11/10/17 06:00 11/12/17 05:23 Sodium Chloride 1,000 ml @ 100 mls/hr Q10H IV 11/10/17 05:09 11/12/17 07:09 (NS Flush) 2 ml UNSCH PRN IV FLUSH 11/10/17 05:15 (NS Flush) 2 ml BID IV FLUSH 11/10/17 09:00 11/12/17 08:48 (Reglan Inj) 5 mg Q6H PRN IV PUSH 11/10/17 05:15 (Tylenol) 650 mg Q6H PRN PO 11/10/17 05:15 ([place] 5-325 Mg) 1 tab Q4H PRN PO 11/10/17 05:15 ([place] 10-325 Mg) 1 tab Q4H PRN PO 11/10/17 05:15 11/12/17 10:05 (Funmi-Colace) 1 tab BID PO 11/10/17 09:00 11/12/17 08:48 (Milk Of Magnesia Liq) 30 ml Q12H PRN PO 11/10/17 05:15 (Senokot) 17.2 mg Q12H PRN PO 11/10/17 05:15 (Dulcolax Supp) 10 mg DAILY PRN RECTAL 11/10/17 05:15 (Lactulose Liq) 30 ml DAILY PRN PO 11/10/17 05:15 (SoluMEDROL INJ) 20 mg Q12HR IV PUSH 11/10/17 21:00 11/12/17 08:48 (Lovenox Inj) 40 mg Q24H SQ 11/10/17 14:00 11/11/17 13:19 Vancomycin HCl 1500 mg/Sodium Chloride 515 ml @ 250 mls/hr Q12H IV 11/11/17 17:00 11/12/17 06:11 ([facility] Ordered Lab Info) SPECIFIC LAB TO BE STEF... ONCE ONCE .XX 11/12/17 16:45 11/12/17 16:46 Family History Noncontributory Social History Alcohol Use: Yes (OCCASIONALLY) Tobacco Use: Yes (1/2 PPD) Substance Use: No Physical Exam Vital Signs Vital Signs Date Time Temp Pulse Resp B/P (MAP) Pulse Ox O2 Delivery O2 Flow Rate FiO2 11/12/17 11:15 98.7 65 18 148/74 (98) 98 11/12/17 11:05 18 11/12/17 07:20 98.4 67 17 140/71 (94) 99 11/12/17 03:27 98.4 67 18 127/72 (90) 98 11/11/17 20:03 98.5 70 18 136/61 (86) 97 11/11/17 18:00 98.2 70 20 120/62 (81) 98 Physical Exam GENERAL: Patient is an obese, well-developed female, awake and alert, not in respiratory distress. SKIN: Cool and dry. No generalized rash, no ecchymoses and no evidence of embolic lesions. HEAD: Atraumatic. Normocephalic. No temporal wasting, or tenderness. EYES: [place] conjunctiva. No petechia or hemorrhage. Pupils equal, round and reactive to light. Extraocular movements full and intact. No scleral icterus. No injection or drainage. EARS, NOSE AND THROAT: Nose without bleeding or purulent nasal discharge. No sinus tenderness. Mucous membranes pink and moist. No oral lesions noted. No exudate. No oral thrush. NECK: Trachea midline. Supple and not tender, no meningeal signs CARDIOVASCULAR: Regular rate and rhythm. No murmurs, rubs or gallops heard RESPIRATORY: Clear to auscultation. Breath sounds equal bilaterally. No rales , wheezing or rhonchi ABDOMEN: Soft, non-tender, nondistended. Bowel sounds present and normoactive. No guarding. No rebound. No organomegaly. EXTREMITIES: No clubbing, cyanosis. RLE slightly larger compared to LLE. There is a bright red area on distal half of her R leg, with [id number] texture posteriorly, and patches of redness on the medial R foot up to the big toe. No joint effusion, has good ROM. No open wound noted. No calf tenderness. Well perfused and warm. NEUROLOGICAL: Awake and alert. Cranial nerves grossly intact. Motor grossly within normal limits. PSYCHIATRIC: Normal affect, calm and cooperative. LINE: No evidence of infection Laboratory Laboratory Tests Test 11/12/17 08:38 11/12/17 08:39 Blood Urea Nitrogen 11 Creatinine 0.64 Random Glucose 106 Total Protein 6.5 Albumin 2.8 Calcium Level 8.6 Alkaline Phosphatase 71 Aspartate Amino Transf (AST/SGOT) 11 Alanine Aminotransferase (ALT/SGPT) 24 Total Bilirubin 0.2 Sodium Level 141 Potassium Level 4.3 Chloride Level 108 Carbon Dioxide Level 23.9 Anion Gap 9 Estimat Glomerular Filtration Rate 104 Thyroxine (T4) 6.7 Free Triiodothyronine (T3) pg/dL 1.34 Thyroid Stimulating Hormone 3rd Gen 1.280 White Blood Count 12.4 Red Blood Count 4.11 Hemoglobin 9.3 Hematocrit 30.1 Mean Corpuscular Volume 73.3 Mean Corpuscular Hemoglobin 22.6 Mean Corpuscular Hemoglobin Concent 30.9 Red Cell Distribution Width 32.0 Platelet Count 262 Mean Platelet Volume 7.4 Neutrophils (%) (Auto) 79.9 Lymphocytes (%) (Auto) 14.5 Monocytes (%) (Auto) 5.2 Eosinophils (%) (Auto) 0.1 Basophils (%) (Auto) 0.3 Neutrophils # (Auto) 9.9 Lymphocytes # (Auto) 1.8 Monocytes # (Auto) 0.6 Eosinophils # (Auto) 0.0 Basophils # (Auto) 0.0 CBC Comment AUTO DIFF Differential Comment AUTO DIFF CONFIRMED Platelet Estimate NORMAL Platelet Morphology Comment NORMAL Ovalocytes 1+ Date/Time Source Procedure Growth Status 11/09/17 21:55 Blood Peripheral Aerobic Blood Culture - Preliminary NO GROWTH IN 3 DAYS Resulted 11/09/17 21:55 Blood Peripheral Anaerobic Blood Culture - Preliminary NO GROWTH IN 3 DAYS Resulted Result Diagram: 11/12/17 0839 11/12/17 0838 Assessment and Plan Assessment and Plan IMPRESSION Cellulitis RLE, clinically looks like erysipelas, some improvement per patient with degree of redness - clinical presentation also the usual Strep infection with fever preceding onset of cellulitis RECOMMENDATION IV Ancef Short course of Clindamycin to decrease toxin effects Elevate RLE Monitor response to new Rx I will follow along with you Thank you for this consultation Discussed Condition With Explained plan to the patient Kenya House MD November 12, 2017 12:45
[2017-11-12] MEDS: CLINDAMYCIN 600 MG/NS PREMIX 50 ML IV SCH ×2 (13:22→22:33)
[2017-11-12] MEDS: ceFAZolin 2 GM PREMIX 50 ML IV SCH ×2 (14:03→21:05)
[2017-11-12] MEDS: ENOXAPARIN SODIUM 40 MG/0.4 ML SYRINGE SQ SCH (14:08)
[2017-11-12 15:12] VITALS: BP 153/72; PULSE 66; RESP 18; TEMP 98.8; O2SAT 99
[2017-11-12] MEDS ORDERED: PHARMACY ORDERED LAB ONE ×2 (16:45→22:45)
[2017-11-12 20:30] VITALS: BP 148/83; PULSE 59; RESP 16; TEMP 98.7; O2SAT 99
[2017-11-13] VITALS (8 sets, daily range): BP systolic 134–183; BP diastolic 65–96; PULSE 54–84; RESP 16–20; TEMP 97.2–99; O2SAT 96–99
[2017-11-13] MEDS: ACETAMINOPHEN/HYDROcodone 325 MG/10 MG TAB PO PRN ×5 (02:11→21:53)
[2017-11-13] MEDS: ceFAZolin 2 GM PREMIX 50 ML IV SCH ×3 (06:00→22:18)
[2017-11-13] MEDS: CLINDAMYCIN 600 MG/NS PREMIX 50 ML IV SCH ×3 (06:36→21:47)
[2017-11-13 07:09] LABS: AUTOMATED NEUTROPHIL # 10.5 TH/MM3 (1.8-7.7); BASOPHIL % 0.3 % (0.0-2.0); EOSINOPHIL % 0.1 % (0.0-4.0); HEMATOCRIT 30.8 % (35.0-46.0); HEMOGLOBIN 9.4 GM/DL (11.6-15.3); LYMPH % 14.3 % (9.0-44.0); LYMPHOCYTE # 1.8 TH/MM3 (1.0-4.8); MEAN CELL VOLUME 73.6 FL (80.0-100.0); MEAN CORPUSCULAR HEMOGLOBIN 22.5 PG (27.0-34.0); MEAN CORPUSCULAR HGB CONC 30.6 % (32.0-36.0); MEAN PLATELET VOLUME 7.5 FL (7.0-11.0); MONO % 4.1 % (0.0-8.0); MONOCYTE # 0.5 TH/MM3 (0-0.9); NEUT % 81.2 % (16.0-70.0); PLATELET COUNT 287 TH/MM3 (150-450); RED BLOOD COUNT 4.18 MIL/MM3 (4.00-5.30); RED CELL DISTRIBUTION WIDTH 31.8 % (11.6-17.2); WHITE BLOOD COUNT 12.9 TH/MM3 (4.0-11.0)
[2017-11-13 07:35] LABS: BICARBONATE 24.2 MEQ/L (21.0-32.0); CALCIUM 8.5 MG/DL (8.5-10.1); CREATININE 0.64 MG/DL (0.50-1.00)
[2017-11-13] MEDS: SODIUM CHLORIDE 0.9% FLUSH 10 ML FLUSH IV FLUSH SCH ×2 (10:01→21:48)
[2017-11-13] MEDS: methylPREDNISolone SOD SUCC 40 MG/1 ML VIAL IV PUSH SCH (10:01)
[2017-11-13] MEDS: ASPIRIN EC 81 MG TABEC PO SCH (10:02)
[2017-11-13] MEDS: FERROUS SULFATE 325 MG (65 MG ELEMENTAL IRON) TAB PO SCH ×3 (10:02→18:53)
[2017-11-13] MEDS: DOCUSATE SODIUM 50 MG/SENNA 8.6 MG TAB PO SCH ×2 (10:02→21:48)
[2017-11-13] MEDS: METOPROLOL TARTRATE 25 MG TAB PO SCH ×2 (10:02→21:48)
--- NOTE | 2017-11-13 12:16 | HHI.IDPN ---
Subjective Subjective Remarks Patient is a 37-year-old female, presented to the hospital for evaluation of redness on her right leg and foot. His problem started about 5 days prior to admission when she had an acute onset of fevers. He did not think much of it, however about 2 days prior to admission she started noticing redness on her right leg and right foot. It started getting worse, and she presented to the hospital November 10 for further evaluation and treatment. Since admission she has not had any fever. She was started on vancomycin and cefepime. Her WBC is mildly elevated at 12,000. It was felt that she was not improving, so infectious disease consultation has been requested to evaluate the patient. Patient stated that the redness on her right foot as well as on the anterior right leg is probably a little bit better than when she came in. She is complaining of a lot of pain. She denies any respiratory complaint as far as any sore throat or any cough or congestion. Denies any nausea or vomiting, diarrhea, abdominal pain or any urinary complaints. Notes reviewed Temps ok Feels better Wants to ambulate more Antibiotics Ancef Clindamycin Current Medications Medications (Trade) Dose Ordered Sig/Shilpi Route Start Time Stop Time Status Last Admin (NS Flush) 2 ml UNSCH PRN IV FLUSH 11/10/17 05:15 (NS Flush) 2 ml BID IV FLUSH 11/10/17 09:00 11/13/17 10:01 (Reglan Inj) 5 mg Q6H PRN IV PUSH 11/10/17 05:15 (Tylenol) 650 mg Q6H PRN PO 11/10/17 05:15 ([place] 5-325 Mg) 1 tab Q4H PRN PO 11/10/17 05:15 ([place] 10-325 Mg) 1 tab Q4H PRN PO 11/10/17 05:15 11/13/17 10:03 (Funmi-Colace) 1 tab BID PO 11/10/17 09:00 11/13/17 10:02 (Milk Of Magnesia Liq) 30 ml Q12H PRN PO 11/10/17 05:15 (Senokot) 17.2 mg Q12H PRN PO 11/10/17 05:15 (Dulcolax Supp) 10 mg DAILY PRN RECTAL 11/10/17 05:15 (Lactulose Liq) 30 ml DAILY PRN PO 11/10/17 05:15 (SoluMEDROL INJ) 20 mg Q12HR IV PUSH 11/10/17 21:00 11/13/17 10:01 (Lovenox Inj) 40 mg Q24H SQ 11/10/17 14:00 11/12/17 14:08 Cefazolin Sodium/ Dextrose 50 ml @ 100 mls/hr Q8H IV 11/12/17 14:00 11/13/17 06:00 Clindamycin/ Sodium Chloride 50 ml @ 100 mls/hr Q8H IV 11/12/17 14:00 11/14/17 06:29 11/13/17 06:36 (Ecotrin Ec) 81 mg DAILY PO 11/13/17 09:00 11/13/17 10:02 (Lipitor) 20 mg HS PO 11/13/17 21:00 (Ferrous Sulfate) 325 mg TIDPC PO 11/13/17 09:30 11/13/17 10:02 (Lopressor) 12.5 mg BID PO 11/13/17 09:00 11/13/17 10:02 Lines PIV no evidence of infection Past Medical History Chronic Anemia Osteoarthritis General Anxiety Disorder CAD Old [place] Hx of Headaches Endometriosis Ovarian Cysts Past Surgical History Cholecystectomy Tooth Extraction Tonsillectomy Allergies: Coded Allergies: diphenhydramine (Unverified Allergy, Unknown, 08/09/17) Objective . Vital Signs Date Time Temp Pulse Resp B/P (MAP) Pulse Ox O2 Delivery O2 Flow Rate FiO2 11/13/17 11:41 99.0 59 18 163/77 (105) 98 11/13/17 09:59 68 99 11/13/17 09:25 98.2 56 18 183/96 (125) 99 11/13/17 07:00 18 11/13/17 05:15 97.2 84 20 142/76 (98) 98 11/13/17 01:10 98.0 67 16 134/65 (88) 97 11/12/17 20:30 98.7 59 16 148/83 (104) 99 11/12/17 15:12 98.8 66 18 153/72 (99) 99 . Laboratory Tests Test 11/12/17 08:39 11/13/17 05:55 White Blood Count 12.4 TH/MM3 12.9 TH/MM3 Red Blood Count 4.11 MIL/MM3 4.18 MIL/MM3 Hemoglobin 9.3 GM/DL 9.4 GM/DL Hematocrit 30.1 % 30.8 % Mean Corpuscular Volume 73.3 FL 73.6 FL Mean Corpuscular Hemoglobin 22.6 PG 22.5 PG Mean Corpuscular Hemoglobin Concent 30.9 % 30.6 % Red Cell Distribution Width 32.0 % 31.8 % Platelet Count 262 TH/MM3 287 TH/MM3 Mean Platelet Volume 7.4 FL 7.5 FL Neutrophils (%) (Auto) 79.9 % 81.2 % Lymphocytes (%) (Auto) 14.5 % 14.3 % Monocytes (%) (Auto) 5.2 % 4.1 % Eosinophils (%) (Auto) 0.1 % 0.1 % Basophils (%) (Auto) 0.3 % 0.3 % Neutrophils # (Auto) 9.9 TH/MM3 10.5 TH/MM3 Lymphocytes # (Auto) 1.8 TH/MM3 1.8 TH/MM3 Monocytes # (Auto) 0.6 TH/MM3 0.5 TH/MM3 Eosinophils # (Auto) 0.0 TH/MM3 0.0 TH/MM3 Basophils # (Auto) 0.0 TH/MM3 0.0 TH/MM3 CBC Comment AUTO DIFF AUTO DIFF Differential Comment AUTO DIFF CONFIRMED AUTO DIFF CONFIRMED Platelet Estimate NORMAL NORMAL Platelet Morphology Comment NORMAL NORMAL Ovalocytes 1+ Laboratory Tests Test 11/12/17 08:38 11/13/17 05:55 Blood Urea Nitrogen 11 MG/DL 12 MG/DL Creatinine 0.64 MG/DL 0.64 MG/DL Random Glucose 106 MG/DL 139 MG/DL Total Protein 6.5 GM/DL Albumin 2.8 GM/DL Calcium Level 8.6 MG/DL 8.5 MG/DL Alkaline Phosphatase 71 U/L Aspartate Amino Transf (AST/SGOT) 11 U/L Alanine Aminotransferase (ALT/SGPT) 24 U/L Total Bilirubin 0.2 MG/DL Sodium Level 141 MEQ/L 141 MEQ/L Potassium Level 4.3 MEQ/L 4.3 MEQ/L Chloride Level 108 MEQ/L 107 MEQ/L Carbon Dioxide Level 23.9 MEQ/L 24.2 MEQ/L Anion Gap 9 MEQ/L 10 MEQ/L Estimat Glomerular Filtration Rate 104 ML/MIN 104 ML/MIN Thyroxine (T4) 6.7 MCG/DL Free Triiodothyronine (T3) pg/dL 1.34 PG/ML Thyroid Stimulating Hormone 3rd Gen 1.280 uIU/ML Physical Exam GENERAL: Patient is an obese, well-developed female, awake and alert, not in respiratory distress. SKIN: Cool and dry. No generalized rash, no ecchymoses and no evidence of embolic lesions. HEAD: Atraumatic. Normocephalic. No temporal wasting, or tenderness. EYES: [place] conjunctiva. No petechia or hemorrhage. Pupils equal, round and reactive to light. Extraocular movements full and intact. No scleral icterus. No injection or drainage. EARS, NOSE AND THROAT: Nose without bleeding or purulent nasal discharge. No sinus tenderness. Mucous membranes pink and moist. No oral lesions noted. No exudate. No oral thrush. NECK: Trachea midline. Supple and not tender, no meningeal signs CARDIOVASCULAR: Regular rate and rhythm. No murmurs, rubs or gallops heard RESPIRATORY: Clear to auscultation. Breath sounds equal bilaterally. No rales , wheezing or rhonchi ABDOMEN: Soft, non-tender, nondistended. Bowel sounds present and normoactive. No guarding. No rebound. No organomegaly. EXTREMITIES: No clubbing, cyanosis. RLE slightly larger compared to LLE. There is a bright red area on distal half of her R leg, with [id number] texture posteriorly, and improving patches of redness on the medial R foot up to the big toe. No joint effusion, has good ROM. No open wound noted. No calf tenderness. Well perfused and warm. NEUROLOGICAL: Awake and alert. Cranial nerves grossly intact. Motor grossly within normal limits. PSYCHIATRIC: Normal affect, calm and cooperative. LINE: No evidence of infection Assessment & Plan Remarks IMPRESSION Cellulitis RLE, clinically looks like erysipelas, some improvement per patient with degree of redness - clinical presentation also the usual Strep infection with fever preceding onset of cellulitis - slowly improving RECOMMENDATION IV Ancef Short course of Clindamycin to decrease toxin effects Elevate RLE DENIS stockings Monitor response to new Rx If continues to improve, possibly D/C tomorrow on po Keflex Explained plan to patient D/W Dr Monroy (HEPAS) Kenya House MD November 13, 2017 12:16
[2017-11-13] MEDS: ENOXAPARIN SODIUM 40 MG/0.4 ML SYRINGE SQ SCH (14:32)
--- NOTE | 2017-11-13 16:08 | HHI.PR ---
Subjective Remarks Follow-up right lower extremity cellulitis/erysipelas. States it is slowly improving tolerating IV Ancef and clindamycin. Discussed with infectious disease, possible discharge in the morning continue IV antibiotics with edema control. Objective Vitals Vital Signs Date Time Temp Pulse Resp B/P (MAP) Pulse Ox O2 Delivery O2 Flow Rate FiO2 11/13/17 15:04 98.7 62 18 134/68 (90) 99 11/13/17 11:41 99.0 59 18 163/77 (105) 98 11/13/17 09:59 68 99 11/13/17 09:25 98.2 56 18 183/96 (125) 99 11/13/17 07:00 18 11/13/17 05:15 97.2 84 20 142/76 (98) 98 11/13/17 01:10 98.0 67 16 134/65 (88) 97 11/12/17 20:30 98.7 59 16 148/83 (104) 99 I/O 11/12/17 11/12/17 11/12/17 11/13/17 11/13/17 11/13/17 07:00 15:00 23:00 07:00 15:00 23:00 Intake Total 1200 ml 790 ml 480 ml Balance 1200 ml 790 ml 480 ml Intake Oral 1200 ml 360 ml 480 ml IV Total 430 ml # Voids 5 3 3 Result Diagram: 11/13/17 0555 11/13/17 0555 Objective Remarks GENERAL: Well-nourished, well-developed female patient in [facility]. SKIN: Warm and dry. CARDIOVASCULAR: Regular rate and rhythm. No murmur appreciated. RESPIRATORY: No accessory muscle use. Clear to auscultation. Breath sounds equal bilaterally. GASTROINTESTINAL: Abdomen soft, non-tender, nondistended. Normoactive bowel sounds x4. MUSCULOSKELETAL: No obvious deformities. RLE with improving 1+edema and diffuse erythema from distal calf to ankle with some patchy punctate areas of erythema at medial foot; warm to touch. NEUROLOGICAL: Awake and alert. No obvious cranial nerve deficits. Motor grossly within normal limits. Moving all extremities spontaneously. Normal speech. PSYCHIATRIC: Appropriate mood and affect; insight and judgment normal. Procedures none A/P Problem List: (1) Cellulitis ICD Code: L03.90 - Cellulitis, unspecified (2) Vasculitis ICD Code: I77.6 - Arteritis, unspecified Assessment and Plan 37 year old female with history of chronic anemia, arthritis, anxiety, CAD, endometriosis, presents with RLE redness and swelling x2days. RLE Cellulitis/erysipelas: Gradually improving -Continue antibiotics with IV Ancef and clindamycin with edema control. -Doubt vasculitis will discontinue IV steroids Chronic Anemia: Hgb 11.8 --> 10.1 --> 9.3 likely dilutional -No signs of active bleeding -Follow CBC trend CAD, Old [place]: chronic, asymptomatic -Follow clinically DVT Prophylaxis: Lovenox Discharge Planning Possible discharge in the morning Henrique Monroy MD November 13, 2017 16:08
[2017-11-13] MEDS ORDERED: HYDR-3583 PO (16:10)
[2017-11-13] MEDS ORDERED: CEPH-460 PO (16:10)
--- NOTE | 2017-11-13 16:11 | HHI.DCPOC ---
Discharge Care Plan Diagnosis: (1) Cellulitis Your Health Problems Are: Difficulty with ADL Exercise Tolerance Goals to Promote Your Health * To prevent worsening of your condition and complications * To maintain your health at the optimal level Directions to Meet Your Goals Take your medications as prescribed Follow your dietary instruction Follow activity as directed Keep your appointments as scheduled Take your immunizations and boosters as scheduled If your symptoms worsen call your PCP, if no PCP go to Urgent Care Center or Emergency Room Smoking is Dangerous to Your Health. Avoid second hand smoke Call the 24-hour hour crisis hotline for domestic abuse at Henrique Monroy MD November 13, 2017 16:11
[2017-11-13] MEDS ORDERED: ATORVASTATIN 20 MG TAB PO SCH (21:00)
[2017-11-14 04:01] VITALS: BP 147/83; PULSE 57; RESP 16; TEMP 97.8; O2SAT 97
[2017-11-14] MEDS: ceFAZolin 2 GM PREMIX 50 ML IV SCH (05:13)
[2017-11-14] MEDS: CLINDAMYCIN 600 MG/NS PREMIX 50 ML IV SCH (05:46)
[2017-11-14 08:22] VITALS: BP 127/60; PULSE 64; RESP 18; TEMP 98.4; O2SAT 99
[2017-11-14] MEDS: ASPIRIN EC 81 MG TABEC PO SCH (09:59)
[2017-11-14] MEDS: DOCUSATE SODIUM 50 MG/SENNA 8.6 MG TAB PO SCH (09:59)
[2017-11-14] MEDS: FERROUS SULFATE 325 MG (65 MG ELEMENTAL IRON) TAB PO SCH (09:59)
[2017-11-14] MEDS: METOPROLOL TARTRATE 25 MG TAB PO SCH (09:59)
[2017-11-14] MEDS: SODIUM CHLORIDE 0.9% FLUSH 10 ML FLUSH IV FLUSH SCH (09:59)
[2017-11-14] MEDS: ACETAMINOPHEN/HYDROcodone 325 MG/10 MG TAB PO PRN (10:29)
--- NOTE | 2017-11-14 12:27 | HHI.PR ---
Subjective Remarks Follow-up right lower extremity cellulitis Objective Vitals Vital Signs Date Time Temp Pulse Resp B/P (MAP) Pulse Ox O2 Delivery O2 Flow Rate FiO2 11/14/17 08:22 98.4 64 18 127/60 (82) 99 11/14/17 04:01 97.8 57 16 147/83 (104) 97 11/13/17 23:38 98.1 54 16 146/69 (94) 96 11/13/17 19:51 98.4 63 16 146/73 (97) 99 11/13/17 15:04 98.7 62 18 134/68 (90) 99 I/O 11/13/17 11/13/17 11/13/17 11/14/17 11/14/17 11/14/17 07:00 15:00 23:00 07:00 15:00 23:00 Intake Total 790 ml 580 ml 591 ml 50 ml Balance 790 ml 580 ml 591 ml 50 ml Intake Oral 360 ml 480 ml 591 ml IV Total 430 ml 100 ml 50 ml # Voids 3 3 2 Result Diagram: 11/13/17 0555 11/13/17 0555 Objective Remarks GENERAL: Well-nourished, well-developed female patient in [facility]. SKIN: Warm and dry. CARDIOVASCULAR: Regular rate and rhythm. No murmur appreciated. RESPIRATORY: No accessory muscle use. Clear to auscultation. Breath sounds equal bilaterally. GASTROINTESTINAL: Abdomen soft, non-tender, nondistended. Normoactive bowel sounds x4. MUSCULOSKELETAL: No obvious deformities. RLE with improving 1+edema and diffuse erythema from distal calf to ankle with some patchy punctate areas of erythema at medial foot; warm to touch. NEUROLOGICAL: Awake and alert. No obvious cranial nerve deficits. Motor grossly within normal limits. Moving all extremities spontaneously. Normal speech. PSYCHIATRIC: Appropriate mood and affect; insight and judgment normal. Procedures none A/P Problem List: (1) Cellulitis ICD Code: L03.90 - Cellulitis, unspecified (2) Vasculitis ICD Code: I77.6 - Arteritis, unspecified Assessment and Plan 37 year old female with history of chronic anemia, arthritis, anxiety, CAD, endometriosis, presents with RLE redness and swelling x2days. RLE Cellulitis/erysipelas: Gradually improving -Continue antibiotics with IV Ancef and clindamycin with edema control. -Doubt vasculitis will discontinue IV steroids Chronic Anemia: Hgb 11.8 --> 10.1 --> 9.3 likely dilutional -No signs of active bleeding -Follow CBC trend CAD, Old [place]: chronic, asymptomatic -Follow clinically DVT Prophylaxis: Lovenox Discharge Planning Possible discharge in the morning Henrique Monroy MD November 14, 2017 12:27
[2017-11-14 12:43] VITALS: BP 129/63; PULSE 60; RESP 18; TEMP 97.9; O2SAT 99
--- NOTE | 2017-11-14 16:04 | HHI.DS ---
Discharge Summary Admission Date November 10, 2017 at 05:02 Discharge Date: November 14, 2017 Admitting Diagnosis vasculitis Cellulitis (1) Cellulitis ICD Code: L03.90 - Cellulitis, unspecified Diagnosis: Principal (2) Vasculitis ICD Code: I77.6 - Arteritis, unspecified Diagnosis: Principal Procedures none Brief History - From Admission Mrs. Palacio is a 37 year old female. She has a history of right lower extremity redness and swelling. This has been progressive over the last 2 days. Increased swelling, redness, and pain have been a problem. She decided to come in the emergency department due to the progression. No fevers reported. She has no previous history of this. No other areas of the body are affected. CBC/BMP: 11/13/17 0555 11/13/17 0555 Significant Findings Laboratory Tests Test 11/12/17 08:38 11/12/17 08:39 11/13/17 05:55 Albumin 2.8 GM/DL (3.4-5.0) Aspartate Amino Transf (AST/SGOT) 11 U/L (15-37) Chloride Level 108 MEQ/L (98-107) Free Triiodothyronine (T3) pg/dL 1.34 PG/ML (2.18-3.98) White Blood Count 12.4 TH/MM3 (4.0-11.0) 12.9 TH/MM3 (4.0-11.0) Hemoglobin 9.3 GM/DL (11.6-15.3) 9.4 GM/DL (11.6-15.3) Hematocrit 30.1 % (35.0-46.0) 30.8 % (35.0-46.0) Mean Corpuscular Volume 73.3 FL (80.0-100.0) 73.6 FL (80.0-100.0) Mean Corpuscular Hemoglobin 22.6 PG (27.0-34.0) 22.5 PG (27.0-34.0) Mean Corpuscular Hemoglobin Concent 30.9 % (32.0-36.0) 30.6 % (32.0-36.0) Red Cell Distribution Width 32.0 % (11.6-17.2) 31.8 % (11.6-17.2) Neutrophils (%) (Auto) 79.9 % (16.0-70.0) 81.2 % (16.0-70.0) Neutrophils # (Auto) 9.9 TH/MM3 (1.8-7.7) 10.5 TH/MM3 (1.8-7.7) Ovalocytes 1+ (NORMAL) Random Glucose 139 MG/DL (74-106) PE at Discharge GENERAL: Well-nourished, well-developed female patient in NAD. SKIN: Warm and dry. CARDIOVASCULAR: Regular rate and rhythm. No murmur appreciated. RESPIRATORY: No accessory muscle use. Clear to auscultation. Breath sounds equal bilaterally. GASTROINTESTINAL: Abdomen soft, non-tender, nondistended. Normoactive bowel sounds x4. MUSCULOSKELETAL: No obvious deformities. RLE with improving 1+edema and diffuse erythema from distal calf to ankle with some patchy punctate areas of erythema at medial foot; warm to touch. NEUROLOGICAL: Awake and alert. No obvious cranial nerve deficits. Motor grossly within normal limits. Moving all extremities spontaneously. Normal speech. PSYCHIATRIC: Appropriate mood and affect; insight and judgment normal. Hospital Course 37 year old female with history of chronic anemia, arthritis, anxiety, CAD, endometriosis, presents with RLE redness and swelling x2days. RLE Cellulitis/erysipelas: Improving switch IV Ancef and clindamycin to po keflex with edema control. -Doubt vasculitis will discontinue IV steroids Chronic Anemia: Hgb 11.8 --> 10.1 --> 9.3 likely dilutional -No signs of active bleeding -Follow CBC trend CAD, Old MO: chronic, asymptomatic -Follow clinically DVT Prophylaxis: Lovenox Pt Condition on Discharge: Stable Discharge Disposition: Discharge Home Discharge Time: > 30 minutes Discharge Instructions DIET: Follow Instructions for: As Tolerated, No Restrictions Activities you can perform: Regular-No Restrictions Activities to Avoid: Driving Follow up Referrals: PCP Follow-up - 1 Week New Medications: Cephalexin (Keflex) 500 Mg Cap 500 MG PO Q8H for Infection, #30 CAP 0 Refills Hydrocodone/Acetaminophen (Hydrocodone-Acetamin 10-325 mg) 10 Mg-325 Mg Tablet 1 TAB PO Q6H PRN for PAIN SCALE 6 TO 10, #12 TAB Continued Medications: Aspirin DR (Aspirin DR) 81 Mg Tabdr 81 MG PO DAILY for Blood Clot Prevention, #30 TAB Atorvastatin (Atorvastatin) 20 Mg Tab 20 MG PO HS for Cholesterol Management, #30 TAB 0 Refills Ferrous Sulfate (Ferrous Sulfate) 325 Mg (65 Mg Iron) Tablet 325 MG PO TIDPC for Nutritional Supplement, #90 TAB 0 Refills Metoprolol Tartrate (Metoprolol Tartrate) 25 Mg Tab 12.5 MG PO BID, #60 TAB 0 Refills Henrique Monroy MD November 14, 2017 16:04
== END 2017-11-14 15:01 | disposition home or self-care (01) ==
LOC: NEPE 17:06 → NEDA 11-10 05:02 → NEPHCDU 11-10 08:44
PROVIDERS: ADMIT Internal Medicine; ATTEND Internal Medicine
DX: L03.115 Cellulitis of right lower limb (principal); I77.6 Arteritis, unspecified; A46 Erysipelas; D64.9 Anemia, unspecified; I25.10 Atherosclerotic heart disease of native coronary artery without angina pectoris; F41.1 Generalized anxiety disorder; I25.2 Old myocardial infarction; M17.0 Bilateral primary osteoarthritis of knee; Z72.0 Tobacco use; Z83.3 Family history of diabetes mellitus
CPT/HCPCS: 80048; 80053; 84436; 84443; 84481; 85007; 85025; 85027; 85652; 86038; 86140; 86430; 87040; 96361; 96365; 96366; 96372; 96375; 96376; 99285; G0378; J0690; J0692; J1650; J1885; J2270; J2920; J3370; J7030; J7040; J7050

== ENCOUNTER 2018-03-12 17:19 | Inpatient (IN) ==
[2018-03-12] MEDS ORDERED: Piperacil/Tazo 3.375 GM Premix 50 ML IV.SIG ONE (18:01)
[2018-03-12] MEDS ORDERED: Morphine Sulfate Inj 8 MG/ML Vial IV.PUSH ONE (18:01)
[2018-03-12] MEDS ORDERED: Clindamycin 900 mg/NS Premix 900 MG/50 ML PIGGYBACK IV.SIG STA (18:01)
[2018-03-12] MEDS ORDERED: Vancomycin Inj 1 GM/200 ML PIGGYBACK IV.SIG ONE (18:01)
[2018-03-12] MEDS ORDERED: Vancomycin Inj 1,000 MG in Sodium Chlor 0.9% Inj 250 ML IV.SIG ONE (18:15)
[2018-03-12] MEDS ORDERED: Sod Chloride 0.9% Inj 1,000 ML IV.SIG SCH (18:15)
--- NOTE | 2018-03-12 19:14 | ED ---
HPI General Chief complaint: Extremity Injury, Lower Stated complaint: Right Leg Complaint Time Seen by Provider: 03/12/18 17:47 Source: patient Mode of arrival: ambulatory History of Present Illness HPI narrative: 30-year-old woman presents emerged from complaining cellulitis in the right lower extremity. States symptoms started within the past 24 hours. Struck her foot off noticed a small amount of redness and pain. Worsening pain redness swelling warmth over the past 24 hours. Fever up to 102 now. History of right lower semi-cellulitis in the past also. History of CAD. No history of diabetes. No other immune, no history of puncture wounds or trauma to the area. No other complaints. Pain is moderately severe. Spreads up the leg beyond the area of redness. No other complaints. Related Data Home Medications Medication Instructions Recorded Confirmed aspirin [Aspirin Low Dose] 81 mg PO DAILY 03/12/18 03/12/18 atorvastatin 20 mg PO DAILY 03/12/18 03/12/18 diclofenac sodium 75 mg PO BID 03/12/18 03/12/18 ferrous sulfate 325 mg PO DAILY 03/12/18 03/12/18 metoprolol succinate 50 mg PO DAILY 03/12/18 03/12/18 Allergies Allergy/AdvReac Type Severity Reaction Status Date / Time diphenhydramine Allergy Intermediate Hives Verified 03/12/18 18:51 Review of Systems ROS: all other systems reviewed are negative [facility] Medical History Medical History Anemia (Acute) Coronary artery disease (Acute) Hyperlipidemia (Acute) Hypertension (Acute) Myocardial infarction (Resolved) Surgical History Surgical History History of (Acute) History of cardiac catheterization (Acute) History of cholecystectomy (Acute) Family History Family History Other Family history normal Social History Social History Substance History: No History of Abuse Second Hand Smoke Exposure: Yes Smoking Status: Current every day smoker Tobacco Type: Cigarettes How Often Do You Have a Drink Containing Alcohol: Never Recent Travel in [facility] within the Last 8 Weeks: No Recent Out of Country Travel within the Last 8 Weeks: No Immunization History Tetanus Immunization: >5 Years Hx Influenza Vaccine This Season: No Exam Narrative Exam Narrative: GENERAL: Well-appearing 38-year-old woman, no acute distress. SKIN: Focused skin assessment warm/dry. HEAD: Atraumatic. Normocephalic. EYES: Pupils equal and round. No scleral icterus. No injection or drainage. ENT: No nasal bleeding or discharge. Mucous membranes pink and moist. NECK: Trachea midline. No JVD. CARDIOVASCULAR: Heart rate rapid. No murmurs. RESPIRATORY: No accessory muscle use. Clear to auscultation. Breath sounds equal bilaterally. GASTROINTESTINAL: Abdomen soft, non-tender, nondistended. Hepatic and splenic margins not palpable. MUSCULOSKELETAL: No obvious deformities. There is a small dark area of ecchymosis about the size of a half dollar in the bottom of her foot. Additionally swelling to the bottom of the foot and the top of the foot with edema and tenderness. There is erythema warmth about the medial aspect of the foot and up the medial aspect of the ankle and into the distal lower leg. There is palpable tenderness extending beyond the area of erythema. NEUROLOGICAL: Awake and alert. No obvious cranial nerve deficits. Motor grossly within normal limits. Normal speech. PSYCHIATRIC: Appropriate mood and affect; insight and judgment normal. Course Initial Documented Vital Signs Temperature 102.3 F H 03/12/18 17:25 Pulse Rate 125 H 03/12/18 17:25 Respiratory Rate 17 03/12/18 17:25 Blood Pressure 136/95 H 03/12/18 17:25 Pulse Oximetry 98 03/12/18 17:25 Last Documented Vital Signs Temperature 99.6 F 03/13/18 00:30 Pulse Rate 108 H 03/13/18 00:30 Respiratory Rate 20 03/13/18 00:30 Blood Pressure 108/55 L 03/13/18 00:30 Pulse Oximetry 96 03/13/18 00:30 Sign Out Sign Out Data: Patient Sign Out occurred on 03/12/18 at 19:37. Patient's care was discussed, and care was transferred from Martin Villagomez MD to Soraya Mortensen MD. Sign Out Comment: Follow-up line clinical exam, discuss with podiatry at 9 PM, follow-up on CT, labs, admission. Last updated by Martin Villagomez MD at 03/12/18 19:28 Post-Handoff Eval: I received care of patient in check out. At time of check out, labs and CT pending with plan for admission. Labs reveal leukocytosis but are otherwise unremarkable. LRINEC score < 6 (CRP is still pending, thus cannot be fully calculated). Erythema has spread slightly outside of the margins and she has tenderness proximal to the erythema. I spoke with Dr Torres whom is coming to evaluate the patient. She has been admitted to Dr Patel. Medical Decision Making MDM Narrative Medical decision making narrative: 38-year-old woman with right lower extremity soft tissue infection, concern for necrotizing soft tissue infection. Rapid progression, high fevers, pain beyond the margin, dark ecchymosis. Will get CT to look for any direct evidence or subcutaneous gas. I spoke with Dr. Torres. Will follow the patient closely in the emergency department, we marked the wound edges, will look for any progression, improvement, and the results of the CT. Will follow up with him in about 9 PM. If patient does not show any significant progression, and the rest of her workup is reassuring, patient was admitted to the floor for IV antibiotics. Medical Screen Exam Complete: Yes Emergency Medical Condition: Yes Lab Data Result diagrams: 03/12/18 19:00 03/12/18 19:00 Lab Results 03/12/18 03/12/18 03/12/18 Range/Units 19:00 19:00 19:00 WBC 13.6 H (4.0-11.0) th/mm3 RBC 4.83 (4.00-5.30) mil/mm3 Hgb 13.4 (11.6-15.3) gm/dL Hct 40.7 (35.0-46.0) % MCV 84.2 (80.0-100.0) fL MCH 27.7 (27.0-34.0) pg MCHC 32.9 (32.0-36.0) % RDW 15.5 (11.6-17.2) % Plt Count 263 (150-450) th/mm3 MPV 7.1 (7.0-11.0) fL Neut % (Auto) 81.5 H (16.0-70.0) % Lymph % (Auto) 12.8 (9.0-44.0) % [place] % (Auto) 5.5 (0.0-8.0) % Eos % (Auto) 0.0 (0.0-4.0) % Baso % (Auto) 0.2 (0.0-2.0) % Neut # (Auto) 11.1 H (1.8-7.7) th/mm3 Lymph # (Auto) 1.7 (1.0-4.8) th/mm3 [place] # (Auto) 0.7 (0.0-0.9) th/mm3 Eos # (Auto) 0.0 (0.0-0.4) th/mm3 Baso # (Auto) 0.0 (0.0-0.2) th/mm3 WBC Differential . Differential Comment Auto diff final ESR (0-20) mm/hr Sodium 136 (136-145) meq/L Potassium 4.3 (3.5-5.1) meq/L Chloride 103 (98-107) meq/L Carbon Dioxide 23.9 (21.0-32.0) meq/L Anion Gap 9 (5-15) meq/L BUN 9 (7-18) mg/dL Creatinine 0.90 (0.50-1.00) mg/dL Estimated GFR 70 L (>89) mL/min Random Glucose 102 (74-106) mg/dL Lactic Acid 1.6 (0.4-2.0) mmol/L Calcium 8.8 (8.5-10.1) mg/dL Total Bilirubin 0.9 (0.2-1.0) mg/dL AST 16 (15-37) U/L ALT 22 (10-53) U/L Alkaline Phosphatase 85 (45-117) U/L C-Reactive Protein (0.00-0.30) mg/dL Total Protein 7.9 (6.4-8.2) g/dL Albumin 3.8 (3.4-5.0) g/dL Urine Color (Yellw/Straw) Urine Clarity (Clear) Urine pH (5.0-8.5) Ur Specific [place] (1.002-1.035) Urine Protein (Neg-Trace) mg/dL Urine Glucose (UA) (Negative) mg/dL Urine Ketones (Negative) mg/dL Urine Occult Blood (Negative) Urine Nitrate (Negative) Urine Bilirubin (Negative) Urine Urobilinogen (Less than 2) mg/dL Ur Leukocyte Esterase (Negative) Urine RBC (0-3) /hpf Urine WBC (0-5) /hpf Ur Squamous Epith Cells (0-5) /hpf Micro UA Comment Ur Microscopic Review Urine Culture Comments 03/12/18 03/12/18 03/12/18 Range/Units 19:00 19:00 21:35 WBC (4.0-11.0) th/mm3 RBC (4.00-5.30) mil/mm3 Hgb (11.6-15.3) gm/dL Hct (35.0-46.0) % MCV (80.0-100.0) fL MCH (27.0-34.0) pg MCHC (32.0-36.0) % RDW (11.6-17.2) % Plt Count (150-450) th/mm3 MPV (7.0-11.0) fL Neut % (Auto) (16.0-70.0) % Lymph % (Auto) (9.0-44.0) % [place] % (Auto) (0.0-8.0) % Eos % (Auto) (0.0-4.0) % Baso % (Auto) (0.0-2.0) % Neut # (Auto) (1.8-7.7) th/mm3 Lymph # (Auto) (1.0-4.8) th/mm3 [place] # (Auto) (0.0-0.9) th/mm3 Eos # (Auto) (0.0-0.4) th/mm3 Baso # (Auto) (0.0-0.2) th/mm3 WBC Differential Differential Comment ESR 30 H (0-20) mm/hr Sodium (136-145) meq/L Potassium (3.5-5.1) meq/L Chloride (98-107) meq/L Carbon Dioxide (21.0-32.0) meq/L Anion Gap (5-15) meq/L BUN (7-18) mg/dL Creatinine (0.50-1.00) mg/dL Estimated GFR (>89) mL/min Random Glucose (74-106) mg/dL Lactic Acid (0.4-2.0) mmol/L Calcium (8.5-10.1) mg/dL Total Bilirubin (0.2-1.0) mg/dL AST (15-37) U/L ALT (10-53) U/L Alkaline Phosphatase (45-117) U/L C-Reactive Protein 15.00 H (0.00-0.30) mg/dL Total Protein (6.4-8.2) g/dL Albumin (3.4-5.0) g/dL Urine Color Yellow (Yellw/Straw) Urine Clarity Clear (Clear) Urine pH 6.0 (5.0-8.5) Ur Specific [place] 1.046 H (1.002-1.035) Urine Protein Negative (Neg-Trace) mg/dL Urine Glucose (UA) Negative (Negative) mg/dL Urine Ketones Trace H (Negative) mg/dL Urine Occult Blood Small H (Negative) Urine Nitrate Negative (Negative) Urine Bilirubin Negative (Negative) Urine Urobilinogen 2.0 H (Less than 2) mg/dL Ur Leukocyte Esterase Negative (Negative) Urine RBC 2 (0-3) /hpf Urine WBC 1 (0-5) /hpf Ur Squamous Epith Cells 1 (0-5) /hpf Micro UA Comment Culture not ind Ur Microscopic Review Not Reportable Urine Culture Comments Culture not ind Imaging Data Radiologist's impression: Chest X-Ray 03/12/18 18:01 CONCLUSION: Negative examination. Ankle X-Ray 03/12/18 18:03 CONCLUSION: No acute findings. Moderate osteoarthritis of the hindfoot. Ankle CT 03/12/18 18:11 CONCLUSION: 1. 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 No acute bony abnormality. Discharge Plan Discharge Disposition Patient Disposition: 30 Still Patient Discharge Condition Condition: Fair Discharge Details Diagnosis: Cellulitis, Sepsis Physicians Team ED Provider: Soraya Mortensen Primary Care Provider: Michelle Gerardo Attending Provider: Sandra Patel Other Providers: Joselin Thomas Status ED Status: Left Department Discharge Information Discharge Date/Time: 03/12/18 22:30
[2018-03-12] MEDS ORDERED: HYDROmorphone PF Inj 2 MG/ML Vial IV.PUSH ONE (19:16)
[2018-03-12 19:25] LABS: Baso % (Auto) 0.2 % (0.0-2.0); Hematocrit 40.7 % (35.0-46.0); Hemoglobin 13.4 gm/dL (11.6-15.3); Lymph # (Auto) 1.7 th/mm3 (1.0-4.8); Lymph % (Auto) 12.8 % (9.0-44.0); Mean Corpuscular HGB Conc 32.9 % (32.0-36.0); Mean Corpuscular Hemoglobin 27.7 pg (27.0-34.0); Mean Corpuscular Volume 84.2 fL (80.0-100.0); Mean Platelet Volume 7.1 fL (7.0-11.0); Mono # (Auto) 0.7 th/mm3 (0.0-0.9); Mono % (Auto) 5.5 % (0.0-8.0); Neut # (Auto) 11.1 th/mm3 (1.8-7.7); Neut % (Auto) 81.5 % (16.0-70.0); Platelet Count 263 th/mm3 (150-450); Red Blood Count 4.83 mil/mm3 (4.00-5.30); Red Cell Distribution Width 15.5 % (11.6-17.2); White Blood Count 13.6 th/mm3 (4.0-11.0)
[2018-03-12 19:44] LABS: Albumin 3.8 g/dL (3.4-5.0); Anion Gap 9 meq/L (5-15); Aspartate Aminotransferase 16 U/L (15-37); Blood Urea Nitrogen 9 mg/dL (7-18); Calcium 8.8 mg/dL (8.5-10.1); Carbon Dioxide 23.9 meq/L (21.0-32.0); Chloride 103 meq/L (98-107); Glomerular Filtration Rate 70 mL/min (>89); Glucose,Random 102 mg/dL (74-106); Potassium 4.3 meq/L (3.5-5.1); Sodium 136 meq/L (136-145)
[2018-03-12 19:45] LABS: Alanine Aminotransferase 22 U/L (10-53)
[2018-03-12 19:47] LABS: Alkaline Phosphatase 85 U/L (45-117); Total Protein 7.9 g/dL (6.4-8.2)
[2018-03-12 21:56] LABS: Bilirubin,Urine Negative (Negative); Clarity,Urine Clear (Clear); Color,Urine Yellow (Yellw/Straw); Glucose,Urine (UA) Negative (Negative); Leukocyte Esterase,Urine Negative (Negative); Nitrite,Urine Negative (Negative); Specific Gravity,Urine 1.046 (1.002-1.035); Squamous Epithelial Cell,Urine 1 /hpf (0-5)
[2018-03-12] MEDS ORDERED: Vancomycin Consult Pharmacy OTHER PRN (21:56)
[2018-03-12] MEDS ORDERED: Bisacodyl 10 MG Supp RECTAL PRN (21:58)
[2018-03-12] MEDS ORDERED: Acetaminophen 325 MG Tablet PO PRN (21:58)
[2018-03-12] MEDS ORDERED: fentaNYL Citrate Inj 250 MCG/5 ML Ampul ONE (22:00)
[2018-03-12] MEDS ORDERED: Heparin - SQ 10,000 UNITS/ML Vial SQ SCH (22:00)
[2018-03-12] MEDS ORDERED: Bupivacaine PF 0.25% Inj 30 ML Vial ONE (22:04)
[2018-03-12] MEDS ORDERED: Lidocaine PF 1% Inj 5 ML Syringe OTHER ONE (22:30)
[2018-03-12] MEDS ORDERED: Promethazine 25 MG Supp RECTAL PRN (23:07)
[2018-03-12] MEDS ORDERED: Misc Info for Pharmacy OTHER STA (23:07)
[2018-03-12] MEDS ORDERED: HYDROmorphone PF Inj 2 MG/ML Vial IV.PUSH PRN (23:11)
[2018-03-12] MEDS ORDERED: *Meperidine Inj 25 MG/ML Vial PERIprocedural Use ONLY ONE (23:22)
[2018-03-12] MEDS: Sod Chloride 0.9% Inj 1,000 ML IV.CONT SCH (23:30)
[2018-03-12] MEDS ORDERED: *morphine SULFATE 4 MG/ML PERIprocedure ONLY ONE ×2 (23:36→23:56)
[2018-03-13] MEDS ORDERED: Piperacil/Tazo 3.375 GM Premix 50 ML IV.SIG SCH (00:01)
[2018-03-13] MEDS: Piperacil/Tazo 3.375 GM Premix 50 ML IV.SIG SCH ×4 (03:54→21:09)
[2018-03-13] MEDS: Clindamycin 900 mg/NS Premix 900 MG/50 ML PIGGYBACK IV.SIG SCH ×3 (05:56→21:54)
[2018-03-13] MEDS: Sod Chloride 0.9% Inj 1,000 ML IV.CONT SCH ×3 (05:58→22:49)
[2018-03-13 06:14] LABS: Baso % (Auto) 0.2 % (0.0-2.0); Hematocrit 37.2 % (35.0-46.0); Hemoglobin 12.2 gm/dL (11.6-15.3); Lymph # (Auto) 0.7 th/mm3 (1.0-4.8); Lymph % (Auto) 5.3 % (9.0-44.0); Mean Corpuscular HGB Conc 32.9 % (32.0-36.0); Mean Corpuscular Hemoglobin 27.7 pg (27.0-34.0); Mean Corpuscular Volume 84.2 fL (80.0-100.0); Mean Platelet Volume 7.2 fL (7.0-11.0); Mono # (Auto) 0.3 th/mm3 (0.0-0.9); Mono % (Auto) 2.4 % (0.0-8.0); Neut # (Auto) 12.1 th/mm3 (1.8-7.7); Neut % (Auto) 92.1 % (16.0-70.0); Platelet Count 266 th/mm3 (150-450); Red Blood Count 4.42 mil/mm3 (4.00-5.30); Red Cell Distribution Width 15.7 % (11.6-17.2); White Blood Count 13.1 th/mm3 (4.0-11.0)
[2018-03-13 06:31] LABS: Albumin 3.3 g/dL (3.4-5.0); Anion Gap 8 meq/L (5-15); Aspartate Aminotransferase 25 U/L (15-37); Blood Urea Nitrogen 9 mg/dL (7-18); Calcium 8.4 mg/dL (8.5-10.1); Carbon Dioxide 23.6 meq/L (21.0-32.0); Chloride 105 meq/L (98-107); Glomerular Filtration Rate 71 mL/min (>89); Glucose,Random 146 mg/dL (74-106); Potassium 4.1 meq/L (3.5-5.1); Sodium 137 meq/L (136-145)
[2018-03-13 06:32] LABS: Alanine Aminotransferase 22 U/L (10-53)
[2018-03-13 06:34] LABS: Alkaline Phosphatase 78 U/L (45-117); Total Protein 7.3 g/dL (6.4-8.2)
[2018-03-13] MEDS: Ferrous Sulfate 325 MG Tablet PO SCH (08:04)
[2018-03-13] MEDS: oxyCODONE/Acetaminophen 10/325 Tablet PO PRN ×4 (08:04→21:49)
[2018-03-13] MEDS ORDERED: FERROUS SULFATE 325 MG PO SCH (09:00)
[2018-03-13] MEDS ORDERED: Vancomycin Inj 750 MG in Sodium Chlor 0.9% Inj 250 ML IV.SIG SCH (21:00)
--- NOTE | 2018-03-13 21:30 | ECG ---
Date Performed: 03/12/2018 Time Performed: 18:53:18 PTAGE: 38 years EKG: SINUS TACHYCARDIA LOW QRS VOLTAGE IN PRECORDIAL LEADS ABNORMAL RHYTHM ECG PREVIOUS TRACING : 07/31/2017 09.37 Since the previous tracing, no significant change noted DOCTOR: Griffin Pittman Interpretating Date/Time 03/13/2018 21:29:06
[2018-03-14] MEDS: Piperacil/Tazo 3.375 GM Premix 50 ML IV.SIG SCH ×4 (03:39→20:59)
[2018-03-14] MEDS: oxyCODONE/Acetaminophen 10/325 Tablet PO PRN ×5 (04:01→20:59)
[2018-03-14] MEDS: Clindamycin 900 mg/NS Premix 900 MG/50 ML PIGGYBACK IV.SIG SCH ×3 (04:01→21:40)
[2018-03-14] MEDS: Sod Chloride 0.9% Inj 1,000 ML IV.CONT SCH ×2 (05:56→16:41)
[2018-03-14 07:01] LABS: Baso % (Auto) 0.2 % (0.0-2.0); Eos # (Auto) 0.1 th/mm3 (0.0-0.4); Eos % (Auto) 0.9 % (0.0-4.0); Hematocrit 33.4 % (35.0-46.0); Hemoglobin 11.1 gm/dL (11.6-15.3); Lymph # (Auto) 2.2 th/mm3 (1.0-4.8); Lymph % (Auto) 24.5 % (9.0-44.0); Mean Corpuscular HGB Conc 33.1 % (32.0-36.0); Mean Corpuscular Hemoglobin 28.1 pg (27.0-34.0); Mean Corpuscular Volume 84.9 fL (80.0-100.0); Mean Platelet Volume 7.7 fL (7.0-11.0); Mono # (Auto) 0.7 th/mm3 (0.0-0.9); Mono % (Auto) 8.1 % (0.0-8.0); Neut % (Auto) 66.3 % (16.0-70.0); Platelet Count 221 th/mm3 (150-450); Red Blood Count 3.93 mil/mm3 (4.00-5.30); Red Cell Distribution Width 15.5 % (11.6-17.2); White Blood Count 9.1 th/mm3 (4.0-11.0)
[2018-03-14] MEDS: Ferrous Sulfate 325 MG Tablet PO SCH (08:16)
[2018-03-14] MEDS: Vancomycin Inj 2,000 MG in Sodium Chlor 0.9% Inj 500 ML IV.SIG SCH ×2 (10:46→22:13)
[2018-03-15] MEDS: Piperacil/Tazo 3.375 GM Premix 50 ML IV.SIG SCH ×4 (03:38→20:19)
[2018-03-15] MEDS: oxyCODONE/Acetaminophen 10/325 Tablet PO PRN ×4 (03:41→22:16)
[2018-03-15] MEDS: Clindamycin 900 mg/NS Premix 900 MG/50 ML PIGGYBACK IV.SIG SCH ×3 (04:17→20:51)
[2018-03-15] MEDS: Sod Chloride 0.9% Inj 1,000 ML IV.CONT SCH ×5 (04:53→22:22)
[2018-03-15] MEDS ORDERED: Metoprolol Tartrate 25 MG Tablet PO ONE (08:30)
[2018-03-15] MEDS ORDERED: Chlorhexidine Gluconate 2% 1 Pack (2 Cloths) TOPICAL ONE (08:30)
[2018-03-15] MEDS ORDERED: Sodium Chlor 0.9% Inj 500 ML IV.CONT ONE (08:30)
[2018-03-15] MEDS: Ferrous Sulfate 325 MG Tablet PO SCH (09:44)
[2018-03-15] MEDS: Vancomycin Inj 2,000 MG in Sodium Chlor 0.9% Inj 500 ML IV.SIG SCH ×2 (11:41→22:12)
[2018-03-15] MEDS ORDERED: Neomycin/Polymyxin G.U. Irrigant 1 ML Ampul ONE (14:17)
[2018-03-15] MEDS ORDERED: Lidocaine PF 1% Inj 5 ML Syringe OTHER ONE (15:40)
[2018-03-15] MEDS ORDERED: Naloxone Inj 0.4 MG/ML Vial IV.PUSH PRN (16:40)
[2018-03-15] MEDS ORDERED: Bisacodyl 10 MG Supp RECTAL PRN (16:40)
[2018-03-15] MEDS ORDERED: Promethazine 25 MG Supp RECTAL PRN (16:40)
[2018-03-15] MEDS ORDERED: Misc Info for Pharmacy OTHER STA (16:40)
[2018-03-15] MEDS ORDERED: fentaNYL Citrate Inj 100 MCG/2 ML Ampul ONE (16:50)
[2018-03-15] MEDS: Senna/Docusate Sodium 8.6/50 MG Tablet PO SCH (20:18)
[2018-03-15] MEDS ORDERED: Pharmacy Ordered Lab Info OTHER ONE (21:45)
[2018-03-16] MEDS: Piperacil/Tazo 3.375 GM Premix 50 ML IV.SIG SCH ×3 (03:34→14:51)
[2018-03-16] MEDS: oxyCODONE/Acetaminophen 10/325 Tablet PO PRN ×4 (03:52→20:25)
[2018-03-16] MEDS: Clindamycin 900 mg/NS Premix 900 MG/50 ML PIGGYBACK IV.SIG SCH ×3 (04:20→20:24)
[2018-03-16 05:16] LABS: Baso % (Auto) 0.2 % (0.0-2.0); Eos % (Auto) 0.3 % (0.0-4.0); Hematocrit 32.5 % (35.0-46.0); Hemoglobin 10.7 gm/dL (11.6-15.3); Lymph # (Auto) 1.4 th/mm3 (1.0-4.8); Mean Corpuscular Hemoglobin 28.1 pg (27.0-34.0); Mean Corpuscular Volume 84.9 fL (80.0-100.0); Mean Platelet Volume 7.9 fL (7.0-11.0); Mono # (Auto) 0.4 th/mm3 (0.0-0.9); Mono % (Auto) 4.5 % (0.0-8.0); Neut # (Auto) 7.6 th/mm3 (1.8-7.7); Platelet Count 266 th/mm3 (150-450); Red Blood Count 3.83 mil/mm3 (4.00-5.30); Red Cell Distribution Width 15.7 % (11.6-17.2); White Blood Count 9.5 th/mm3 (4.0-11.0)
[2018-03-16] MEDS: Sod Chloride 0.9% Inj 1,000 ML IV.CONT SCH ×2 (05:32→13:55)
[2018-03-16 05:43] LABS: Calcium 7.8 mg/dL (8.5-10.1); Carbon Dioxide 22.1 meq/L (21.0-32.0); Magnesium 1.8 mg/dL (1.5-2.5); Potassium 3.8 meq/L (3.5-5.1)
[2018-03-16] MEDS: Ferrous Sulfate 325 MG Tablet PO SCH (08:44)
[2018-03-16] MEDS: Senna/Docusate Sodium 8.6/50 MG Tablet PO SCH ×2 (08:45→20:25)
[2018-03-16] MEDS: Sodium Chloride 0.45 % Inj 1,000 ML IV.CONT SCH (16:35)
[2018-03-17] MEDS: Sodium Chloride 0.45 % Inj 1,000 ML IV.CONT SCH ×3 (02:58→19:19)
[2018-03-17] MEDS: Clindamycin 900 mg/NS Premix 900 MG/50 ML PIGGYBACK IV.SIG SCH ×2 (05:45→13:06)
[2018-03-17] MEDS: Ferrous Sulfate 325 MG Tablet PO SCH (08:25)
[2018-03-17] MEDS: Senna/Docusate Sodium 8.6/50 MG Tablet PO SCH (08:26)
[2018-03-17] MEDS ORDERED: Vancomycin Inj 1,750 MG in Sodium Chlor 0.9% Inj 500 ML IV.SIG ONE (10:00)
== END 2018-03-17 15:52 | disposition home or self-care (01) ==
LOC: NEPE 17:19 → NEDA 21:07 → N04 22:43
PROVIDERS: ADMIT Hospitalist; ATTEND Hospitalist